=== PATIENT | female | born 2000 | race Caucasian/White ===

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

== ENCOUNTER 2019-01-25 23:26 | Outpatient (CLI) | payer OTHER | END 2019-01-25 23:27 | disposition EMS.NT | LOC: EMS 23:26 | PROVIDERS: ATTEND Surgery | DX: R42 Dizziness and giddiness (principal); R11.0 Nausea ==

== ENCOUNTER 2019-01-29 18:05 | Emergency (ER) | payer OTHER ==
[2019-01-29 18:11] VITALS: BP 121/65
--- NOTE | 2019-01-29 18:16 | ED Physician Documentation ---
History of Present Illness - Stated complaint Stated Complaint: RT FOOT PX - Chief complaint Chief Complaint: Ext Problem - History obtained from History obtained from: Patient - History of Present Illness Timing: Prior to arrival - Additonal information Additional information: Patient is a previously healthy 18-year-old female presenting with right foot pain along the arch after her male electrical maintenance worker was massaging the foot and supposedly felt a pop and movement. Patient reports she is able to bear weight but with pain. Patient reports that she has fracture of the foot before and never received surgical correction as she was instructed to. No hardware in place. Patient denies other strength, range of motion, sensation changes. No overlying skin changes. No other injuries. No improving or worsening factors noted. Review of Systems Skin: denies: Abrasion (s), Laceration (s) Musculoskeletal: reports: Extremity pain. 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 : None HEENT: None Psych: Depression, Anxiety, Panic attacks, ADD/ADHD Musculoskeletal: Fibromyalgia, Chronic back pain Derm: None - Past Surgical History Past Surgical History: No - Present Medications Home Medications: Ambulatory Orders Medication Instructions Recorded Confirmed Albuterol 2.5 mg INH Q4H PRN 05/01/18 12/22/18 SUMAtriptan [Imitrex] 25 mg PO BID PRN 05/01/18 12/22/18 Baclofen 20 mg ORAL DAILY PRN 11/19/18 12/22/18 Sertraline HCl 200 mg ORAL DAILY 11/19/18 12/22/18 busPIRone [Buspar] 15 mg ORAL DAILY 11/19/18 12/22/18 Ondansetron Odt [Zofran] 4 mg TL Q6H PRN #10 tablet 12/22/18 - Allergies Allergies/Adverse Reactions: Allergies Allergy/AdvReac Type Severity Reaction Status Date / Time Penicillins Allergy Hives Verified 11/19/18 18:57 - Social History Does the pt smoke?: No Smoking Status: Never smoker Does the pt drink ETOH?: No Does the pt have substance abuse?: No - POLST Patient has POLST: No PD ED PE NORMAL - Vitals Vital signs reviewed: Yes - General General: Alert and oriented X 3, No acute distress, Well developed/nourished, Other (Sitting in chair with foot propped up on crutch) - HEENT HEENT: Atraumatic, Moist mucous membranes - Cardiac Cardiac: Strong equal pulses - Respiratory Respiratory: No respiratory distress - Derm Derm: Normal color, Warm and dry, No rash - Extremities Extremities: No deformity, No tenderness to palpate, No edema, No calf tenderness / cord - Neuro Neuro: Alert and oriented X 3, No motor deficit, No sensory deficit - Psych Psych: Normal mood, Normal affect Results - Vitals Vitals: Vital Signs - 24 hr 01/29/19 18:09 Temperature 36.8 C Heart Rate 87 Respiratory 16 Rate Blood Pressure 121/65 O2 Saturation 100 Oxygen O2 Source Room air PD MEDICAL DECISION MAKING - ED course Complexity details: reviewed results, re-evaluated patient, considered differential, d/w patient, d/w family ED course: Patient presenting with right foot pain after massage. Have extremely low suspicion for dislocation, fracture, or other bony abnormality, but patient preferring x-ray at this time. X-ray obtained which not been evidence of acute abnormality. Additionally, do not find concern for infection, gout, DVT, or other abnormality, particularly given traumatic nature and benign exam. Although patient is safe to discharge home and recommended supportive cares, return precautions, and appropriate follow-up. Patient voiced understanding and is comfortable with discharge plan. Departure - Departure Disposition: 01 Home, Self Care Clinical Impression: Pain in extremity Qualifiers: Extremity pain location: lower extremity Laterality: right Qualified Code(s): M79.604 - Pain in right leg Condition: Good Instructions: ED Muscle Aching Follow-Up: Paulo Gaffney ARNP [Primary Care Provider] - Within 3 Days Comments: Recommend supportive care such as ice for swelling, elevation, ibuprofen/Tylenol as needed. Please follow-up with primary care physician in next 2 to 3 days and return to ED sooner if experience worsening symptoms or have other concerns.
--- NOTE | 2019-01-29 19:31 | XRAY Report ---
Reason: felt a pop during foot massage, pain with weight b Procedure Date: 01/29/2019 Accession Number: [id number] / [id number] Procedure: XR - Foot 3 View RT CPT Code: FULL RESULT: EXAM: RIGHT FOOT RADIOGRAPHY. EXAM DATE: 01/29/2019 07:07 PM. CLINICAL HISTORY: [place] a pop during foot massage, pain with weight bearing. COMPARISON: FOOT 3 VIEW RT 01/26/2018 8:27 PM. TECHNIQUE: 3 views. FINDINGS: Bones: Stable congenital large os naviculare, with partial fusion. Trabecular and cortical patterns are intact. Joints: Normal. No subluxations. Soft Tissues: Normal. No soft tissue swelling. IMPRESSION: No acute bony abnormality. RADIA
== END 2019-01-29 19:45 | disposition home or self-care (01) ==
LOC: ED 18:05
DX: M79.671 Pain in right foot (principal)
CPT/HCPCS: 99282; 99283

== ENCOUNTER 2019-03-02 20:45 | Emergency (ER) | payer OTHER ==
[2019-03-02 21:07] LABS: BILIRUBIN,URINE NEGATIVE (NEGATIVE); GLUCOSE, URINE (UA) NEGATIVE (NEGATIVE); KETONES,URINE (UA) NEGATIVE (NEGATIVE); LEUKOCYTE ESTERASE, URINE NEGATIVE (NEGATIVE); NITRITE,URINE NEGATIVE (NEGATIVE); OCCULT BLOOD,URINE NEGATIVE (NEGATIVE); PH,URINE 5.5 PH (5.0-7.5); PROTEIN,URINE NEGATIVE (NEGATIVE); UROBILINOGEN,URINE 0.2 (NORMAL) E.U./dL (NORMAL)
[2019-03-02 21:09] LABS: CLARITY,URINE CLEAR (CLEAR); HCG UR QUAL POSITIVE
--- NOTE | 2019-03-02 21:34 | ED Physician Documentation ---
PD HPI ABD PAIN - Stated complaint Stated Complaint: ABD CRAMPING/7 WKS - Chief complaint Chief Complaint: Abd Pain - History obtained from History obtained from: Patient - History of Present Illness Timing - onset: Other (19-year-old G1. She says she is at 7 weeks gestation but review of the dates with LMP of January 21 suggest that she is closer to 5 weeks and 5 days. 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 HEENT: None Psych: Depression, Anxiety, Panic attacks, ADD/ADHD Musculoskeletal: Fibromyalgia, Chronic back pain Derm: None - Past Surgical History Past Surgical History: No - Present Medications Home Medications: Ambulatory Orders Medication Instructions Recorded Confirmed Albuterol 2.5 mg INH Q4H PRN 05/01/18 12/22/18 SUMAtriptan [Imitrex] 25 mg PO BID PRN 05/01/18 12/22/18 Baclofen 20 mg ORAL DAILY PRN 11/19/18 12/22/18 Sertraline HCl 200 mg ORAL DAILY 11/19/18 12/22/18 busPIRone [Buspar] 15 mg ORAL DAILY 11/19/18 12/22/18 Ondansetron Odt [Zofran] 4 mg TL Q6H PRN #10 tablet 12/22/18 - Allergies Allergies/Adverse Reactions: Allergies Allergy/AdvReac Type Severity Reaction Status Date / Time Penicillins Allergy Hives Verified 11/19/18 18:57 - Social History Does the pt smoke?: No Smoking Status: Never smoker Does the pt drink ETOH?: No Does the pt have substance abuse?: No - Immunizations Immunizations are current?: Yes - POLST Patient has POLST: No PD ED PE NORMAL - Vitals Vital signs reviewed: Yes - General General: Alert and oriented X 3, No acute distress - Abdomen Abdomen: Soft, Non tender - Female Female : Other (Bedside ultrasound demonstrates what appears to be a gestational sac, it appears to early for transabdominal approach with bedside ultrasound to give me any definition of heart rate etc.) - Derm Derm: Normal color, Warm and dry - Neuro Neuro: Alert and oriented X 3, Normal speech Results - Vitals Vitals: Vital Signs - 24 hr 03/02/19 03/02/19 03/02/19 20:49 20:52 22:59 Temperature 36.5 C 36.5 C 37.1 C Heart Rate 98 98 92 Respiratory 14 14 16 Rate Blood Pressure 124/68 124/68 106/67 O2 Saturation 98 98 99 Oxygen O2 Source Room air - Labs Labs: Laboratory Tests 03/02/19 03/02/19 03/02/19 21:00 21:00 21:34 HCG, Quant Urine Color YELLOW Urine Clarity CLEAR Urine pH 5.5 Ur Specific [place] 1.020 1.020 Urine Protein NEGATIVE Urine Glucose (UA) NEGATIVE Urine Ketones NEGATIVE Urine Occult Blood NEGATIVE Urine Nitrite NEGATIVE Urine Bilirubin NEGATIVE Urine Urobilinogen 0.2 (NORMAL) Ur Leukocyte Esterase NEGATIVE Ur Microscopic Review NOT INDICATED Urine Culture Comments NOT INDICATED Urine HCG, Qual POSITIVE Blood Type O POSITIVE 03/02/19 21:34 HCG, Quant 72220.00 Urine Color Urine Clarity Urine pH Ur Specific [place] Urine Protein Urine Glucose (UA) Urine Ketones Urine Occult Blood Urine Nitrite Urine Bilirubin Urine Urobilinogen Ur Leukocyte Esterase Ur Microscopic Review Urine Culture Comments Urine HCG, Qual Blood Type - Rads (name of study) OB sono Radiology: EMP read contemporaneously (Yolk sac consistent with dates, no clear heart tone or pole) PD MEDICAL DECISION MAKING - ED course ED course: 19-year-old woman presents with symptoms concerning for threatened . No heart tones on ultrasound, watchful waiting and repeat ultrasound was advised given the early nature of the . There is no evidence of ectopic . Departure - Departure Disposition: 01 Home, Self Care Clinical Impression: Threatened Condition: Good Record reviewed to determine appropriate education?: Yes Instructions: ED Miscarriage Poss Comments: Your blood type is O+, therefore you do not need any RhoGam shots. Your quantitative hCG today was 32460, your ultrasound showed an intrauterine gestational sac, but no clear heartbeat. Hopefully this is likely due to the early nature of your . [place], recommend potentially repeat ultrasound in 1 week to assess the viability of the . Return if worse.
[2019-03-02 23:00] VITALS: BP 106/67
--- NOTE | 2019-03-02 23:16 | Ultrasound Report ---
Reason: cramping, VB 5w5d Procedure Date: 03/02/2019 Accession Number: [id number] / [id number] Procedure: US - OB First Trimester CPT Code: FULL RESULT: EXAM: FIRST TRIMESTER OBSTETRIC ULTRASOUND (Less than 11 weeks) EXAM DATE: 03/02/2019 10:21 PM. CLINICAL HISTORY: Cramping. Vaginal bleeding. LMP: 01/21/2019. COMPARISONS: None. TECHNIQUE: Transabdominal and transvaginal ultrasound examination with static image documentation. CLINICAL DATES: EGA 5 weeks 5 days with CARLOS ENRIQUE 10/28/2019 based on LMP. ASSESSMENT: Gestational Sac: Single intrauterine. Mean gestational sac diameter: 13 mm = 6 weeks 1 day. Embryo: None visualized. Cardiac activity: None visualized. Yolk sac: 4 mm. Amniotic fluid: Not accurately assessed at this gestational age. Early placenta: Not visible at this gestational age. Other: Small perigestational fluid collection noted 1.4 x 0.8 cm. MATERNAL STRUCTURES: Uterus: Anteverted. Unremarkable. Cervix: Closed. Right Ovary/Adnexa: The ovary measures 3.5 x 2.9 x 1.8 cm, volume 9.3 cc. Unremarkable. Left Ovary/Adnexa: The ovary measures 2.9 x 2.1 x 2.9 cm, volume 9.5 cc. Unremarkable. Free Fluid: None. Other: None. IMPRESSION: 1. Single intrauterine at EGA 6 weeks 1 day based on mean sac diameter, which is concordant with clinical dates. 2. Yolk sac identified, but nofetal pole or heartbeat. RADIA
== END 2019-03-02 23:22 | disposition home or self-care (01) ==
LOC: ED 20:45
DX: O20.0 Threatened abortion (principal); Z3A.01 Less than 8 weeks gestation of pregnancy
CPT/HCPCS: 36415; 76801; 76817; 81001; 81003; 81025; 84702; 86900; 86901; 87086; 99282; 99284

== ENCOUNTER 2019-03-04 15:33 | Outpatient (CLI) | payer OTHER | END 2019-03-04 15:34 | disposition EMS.NT | LOC: EMS 15:33 | PROVIDERS: ATTEND Surgery | DX: O99.89 Other specified diseases and conditions complicating pregnancy, childbirth and the puerperium (principal); R10.9 Unspecified abdominal pain ==

== ENCOUNTER 2019-03-04 16:06 | Emergency (ER) | payer OTHER ==
[2019-03-04] MEDS ORDERED: ONDANSETRON 4 MG/2 ML VIAL IVP STA (16:14)
[2019-03-04] MEDS ORDERED: MORPHINE 2 MG/ML CARPUJECT IVP STA ×2 (16:14→16:43)
--- NOTE | 2019-03-04 16:18 | ED Physician Documentation ---
PD HPI MALE - Stated complaint Stated Complaint: PAINFUL CRAMPS - Chief complaint Chief Complaint: Abd Pain - History obtained from History obtained from: Patient (This is a G1 who by dates would be just over 6 weeks now. I saw her 2 days ago for cramping. She had ultrasound showing a yolk sac but no clear IUP or pole. Conservative care and watchful waiting was advised. Her blood type is O+. Cramping became much worse today and on the left side.) Review of Systems Ten Systems: 10 systems reviewed and negative Constitutional: denies: Fever, Chills GI: reports: Abdominal Pain, Nausea. 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 HEENT: None Psych: Depression, Anxiety, Panic attacks, ADD/ADHD Musculoskeletal: Fibromyalgia, Chronic back pain Derm: None - Past Surgical History Past Surgical History: No - Present Medications Home Medications: Ambulatory Orders Medication Instructions Recorded Confirmed Albuterol 2.5 mg INH Q4H PRN 05/01/18 12/22/18 SUMAtriptan [Imitrex] 25 mg PO BID PRN 05/01/18 12/22/18 Baclofen 20 mg ORAL DAILY PRN 11/19/18 12/22/18 Sertraline HCl 200 mg ORAL DAILY 11/19/18 12/22/18 busPIRone [Buspar] 15 mg ORAL DAILY 11/19/18 12/22/18 Ondansetron Odt [Zofran] 4 mg TL Q6H PRN #10 tablet 12/22/18 Hydrocodone/Acetaminophen 1 - 2 each PO Q6H PRN #14 tablet 03/04/19 [Hydrocodon-Acetaminophen 5-325] - Allergies Allergies/Adverse Reactions: Allergies Allergy/AdvReac Type Severity Reaction Status Date / Time Penicillins Allergy Hives Verified 11/19/18 18:57 - Social History Does the pt smoke?: No Smoking Status: Never smoker Does the pt drink ETOH?: No Does the pt have substance abuse?: No - Family History Family history: reports: Non contributory - Immunizations Immunizations are current?: Yes - POLST Patient has POLST: No PD ED PE NORMAL - Vitals Vital signs reviewed: Yes - General General: Alert and oriented X 3, Other (She is crying and appears uncomfortable) - HEENT HEENT: PERRL, EOMI - Neck Neck: Supple, no meningeal sign, No bony TTP - Cardiac Cardiac: RRR, No murmur - Respiratory Respiratory: No respiratory distress, Clear bilaterally - Abdomen Abdomen: Soft, Non tender - Derm Derm: Normal color, Warm and dry - Extremities Extremities: No edema, No calf tenderness / cord - Neuro Neuro: Alert and oriented X 3, Normal speech - Psych Psych: Normal mood, Normal affect Results - Vitals Vitals: Vital Signs - 24 hr 03/04/19 16:09 Temperature 36.5 C Heart Rate 85 Respiratory 14 Rate Blood Pressure 125/63 O2 Saturation 100 Oxygen O2 Source Room air - Labs Labs: Laboratory Tests 03/04/19 03/04/19 03/04/19 16:20 16:20 16:20 WBC 13.8 H RBC 4.46 Hgb 13.9 Hct 42.2 MCV 94.6 MCH 31.2 H MCHC 32.9 RDW 12.2 Plt Count 296 MPV 10.1 Neut # (Auto) 8.7 H Lymph # (Auto) 3.8 H [place] # (Auto) 1.0 Eos # (Auto) 0.1 Baso # (Auto) 0.0 Absolute Nucleated RBC 0.00 Nucleated RBC % 0.0 Sodium 137 Potassium 3.7 Chloride 106 Carbon Dioxide 21 Anion Gap 10.0 BUN 9 Creatinine 0.7 Estimated GFR (MDRD) 107 Glucose 92 Calcium 9.7 HCG, Quant 41209.00 - Rads (name of study) OB sono Radiology: EMP read contemporaneously (Single viable intrauterine , 6 weeks and 0 days based on CRL concordant with clinical dates and a 1.1 x 0.3 x 0.4. Gestational implant hemorrhage.) PD MEDICAL DECISION MAKING - ED course ED course: 19-year-old woman who presents with severe cramping in . Had ultrasound 2 days ago showing yolk sac in uterus. The cramping did start after sex, and that was true for the prior visit as well and pelvic rest was advised for the next week. Her ultrasound does show progression of the but they sammy-gestational hemorrhage may be contributing to her pain. Her pain was controlled with 2 doses of morphine here which caused some reactive nausea which was treated as well. Departure - Departure Disposition: 01 Home, Self Care Clinical Impression: Threatened Condition: Good Record reviewed to determine appropriate education?: Yes Instructions: ED Miscarriage Poss Prescriptions: Hydrocodone/Acetaminophen [Hydrocodon-Acetaminophen 5-325] 1 - 2 each PO Q6H PRN #14 tablet PRN Reason: pain Comments: No sexual activity for a week. Follow-up with your OB this coming week. Return if worse.
[2019-03-04 16:28] LABS: BASOPHILS % (AUTO) 0.3 %; EOSINOPHILS # (AUTO) 0.1 10^3/uL (0.0-0.7); EOSINOPHILS % (AUTO) 0.8 %; HGB - HEMOGLOBIN 13.9 g/dL (12.0-16.0); LYMPHOCYTES # (AUTO) 3.8 10^3/uL (1.5-3.5); LYMPHOCYTES % (AUTO) 27.7 %; MEAN CORPUSCULAR HEMOGLOBIN 31.2 pg (27.0-31.0); MEAN CORPUSCULAR HGB CONC 32.9 g/dL (32.0-36.0); MEAN CORPUSCULAR VOLUME 94.6 fL (81.0-99.0); MEAN PLATELET VOLUME 10.1 fL (7.9-10.8); MONOCYTES % (AUTO) 7.3 %; NEUTROPHILS # (AUTO) 8.7 10^3/uL (1.5-6.6); NEUTROPHILS % (AUTO) 63.4 %; PLT - PLATELET COUNT 296 10^3/uL (130-450); RED BLOOD COUNT 4.46 10^6/uL (4.20-5.40); RED CELL DISTRIBUTION WIDTH 12.2 % (12.0-15.0); WHITE BLOOD COUNT 13.8 x10^3/uL (4.8-10.8)
[2019-03-04 16:36] LABS: CALCIUM 9.7 mg/dL (8.5-10.3); CREATININE 0.7 mg/dL (0.4-1.0)
--- NOTE | 2019-03-04 18:04 | Ultrasound Report ---
Reason: Pelvic pain/cramping Procedure Date: 03/04/2019 Accession Number: [id number] / [id number] Procedure: US - OB First Trimester CPT Code: FULL RESULT: EXAM: FIRST TRIMESTER OBSTETRIC ULTRASOUND (Less than 11 weeks) EXAM DATE: 03/04/2019 05:43 PM. CLINICAL HISTORY: Pelvic pain/cramping. LMP: 01/21/2019. COMPARISONS: OB FIRST TRIMESTER 03/02/2019 10:20 PM. TECHNIQUE: Transabdominal and transvaginal ultrasound examination with static image documentation. CLINICAL DATES: EGA 6 weeks 0 days with CARLOS ENRIQUE 10/28/2019 based on LMP. ASSESSMENT: Gestational Sac: Single intrauterine. Mean gestational sac diameter: 16.2 mm = 6 weeks 3 days. Embryo: CRL (crown-rump length) 3.9 mm = 6 weeks 0 days. Cardiac activity: 92 beats per minute. Yolk sac: 3.7 mm. Amniotic fluid: Not accurately assessed at this gestational age. Early placenta: Not visible at this gestational age. Other: There is a 1.1 x 0.3 x 0.4 cm heterogeneous perigestational fluid collection.. MATERNAL STRUCTURES: Uterus: Anteverted. Unremarkable. Cervix: Closed. Right Ovary/Adnexa: The ovary measures 3.3 x 2.4 x 2.1 cm, volume 8.7 cc. Unremarkable. Left Ovary/Adnexa: The ovary measures 3.3 x 2.0 x 2.8 cm, volume 10.0 cc. There is a 1.1 cm left ovarian corpus luteum cyst. Free Fluid: None. Other: None. IMPRESSION: 1. Single viable intrauterine at EGA 6 weeks 0 days with CARLOS ENRIQUE 10/28/2019 based on crown-rump length, which is concordant with clinical dates. 2. There is a 1.1 x 0.3 x 0.4 cm perigestational implant hemorrhage. RADIA
[2019-03-04] MEDS ORDERED: METOCLOPRAMIDE 10 MG/2 ML VIAL IVP STA (18:17)
[2019-03-04] MEDS ORDERED: ONDANSETRON ODT 4 MG Prepack 2 TL STA (18:19)
[2019-03-04] MEDS ORDERED: HYDROcod/ACET 5/325 Prepack 4 PO STA (18:19)
[2019-03-04 18:34] VITALS: BP 126/77
== END 2019-03-04 18:32 | disposition home or self-care (01) ==
LOC: ED 16:06
DX: O20.0 Threatened abortion (principal); O34.81 Maternal care for other abnormalities of pelvic organs, first trimester; N83.12 Corpus luteum cyst of left ovary; Z3A.01 Less than 8 weeks gestation of pregnancy; R11.0 Nausea; T40.2X5A Adverse effect of other opioids, initial encounter; Y92.538 Other ambulatory health services establishments as the place of occurrence of the external cause
CPT/HCPCS: 36415; 76801; 76817; 80048; 84702; 85025; 96374; 96375; 99283; 99284; J2765

== ENCOUNTER 2019-03-07 19:33 | Outpatient (CLI) | payer OTHER | END 2019-03-07 19:34 | disposition EMS.NT | LOC: EMS 19:33 | PROVIDERS: ATTEND Surgery | DX: O99.89 Other specified diseases and conditions complicating pregnancy, childbirth and the puerperium (principal); R11.0 Nausea; R10.9 Unspecified abdominal pain ==

== ENCOUNTER 2019-03-07 20:25 | Emergency (ER) | payer OTHER ==
[2019-03-07] MEDS ORDERED: SODIUM CHLORIDE 0.9% 1,000 ML IV ONE (21:00)
[2019-03-07] MEDS ORDERED: METOCLOPRAMIDE 10 MG/2 ML VIAL IVP STA (21:00)
--- NOTE | 2019-03-07 21:01 | ED Physician Documentation ---
PD HPI ABD PAIN - Stated complaint Stated Complaint: N/V/ABD PX - Chief complaint Chief Complaint: Abd Pain - History obtained from History obtained from: Patient - History of Present Illness Timing - onset: Other (19-year-old G1 presents with nausea and vomiting for the last few days. She been seen a couple of times for pelvic pain, that is mostly resolved but still very mild. No bleeding. 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 HEENT: None Psych: Depression, Anxiety, Panic attacks, ADD/ADHD Musculoskeletal: Fibromyalgia, Chronic back pain Derm: None - Past Surgical History Past Surgical History: No - Present Medications Home Medications: Ambulatory Orders Medication Instructions Recorded Confirmed Albuterol 2.5 mg INH Q4H PRN 05/01/18 12/22/18 SUMAtriptan [Imitrex] 25 mg PO BID PRN 05/01/18 12/22/18 Baclofen 20 mg ORAL DAILY PRN 11/19/18 12/22/18 Sertraline HCl 200 mg ORAL DAILY 11/19/18 12/22/18 busPIRone [Buspar] 15 mg ORAL DAILY 11/19/18 12/22/18 Ondansetron Odt [Zofran] 4 mg TL Q6H PRN #10 tablet 12/22/18 Hydrocodone/Acetaminophen 1 - 2 each PO Q6H PRN #14 tablet 03/04/19 [Hydrocodon-Acetaminophen 5-325] Metoclopramide [Reglan] 10 mg PO Q6H PRN #20 tablet 03/07/19 Ondansetron Odt [Zofran] 4 mg TL Q6H PRN #14 tablet 03/07/19 - Allergies Allergies/Adverse Reactions: Allergies Allergy/AdvReac Type Severity Reaction Status Date / Time Penicillins Allergy Hives Verified 03/07/19 20:33 - Social History Does the pt smoke?: No Smoking Status: Never smoker Does the pt drink ETOH?: No Does the pt have substance abuse?: No - Immunizations Immunizations are current?: Yes - POLST Patient has POLST: No PD ED PE NORMAL - Vitals Vital signs reviewed: Yes - General General: Alert and oriented X 3, No acute distress - HEENT HEENT: PERRL, EOMI - Neck Neck: Supple, no meningeal sign, No bony TTP - Abdomen Abdomen: Normal bowel sounds, Soft, Non tender - Neuro Neuro: Alert and oriented X 3, Normal speech Results - Vitals Vitals: Vital Signs - 24 hr 03/07/19 03/07/19 20:28 21:32 Temperature 36.6 C Heart Rate 106 H 95 Respiratory 18 16 Rate Blood Pressure 128/73 126/72 O2 Saturation 97 100 Oxygen O2 Source Room air - Labs Labs: Laboratory Tests 03/07/19 03/07/19 21:00 21:55 Sodium 137 Potassium 3.4 L Chloride 103 Carbon Dioxide 19 L Anion Gap 15.0 H BUN 11 Creatinine 0.7 Estimated GFR (MDRD) 107 Glucose 100 Calcium 10.0 Urine Color DARK YELLOW Urine Clarity CLEAR Urine pH 6.0 Ur Specific [place] >=1.030 H Urine Protein 30 H Urine Glucose (UA) NEGATIVE Urine Ketones >=80 H Urine Occult Blood TRACE-LYSE Urine Nitrite NEGATIVE Urine Bilirubin NEGATIVE Urine Urobilinogen 1 (NORMAL) Ur Leukocyte Esterase NEGATIVE Urine RBC 0-5 Urine WBC 0-3 Ur Squamous Epith Cells MOD Squamous H Urine Bacteria Few Urine Mucus Marked Strands Ur Microscopic Review INDICATED Urine Culture Comments NOT INDICATED PD MEDICAL DECISION MAKING - ED course ED course: 19-year-old G1 presents with vomiting. Previously seen cramps seem to be mostly better. She did not have much relief with Reglan but had better relief with Zofran here. She preferred the Zofran. We discussed the potential tiny risk based on her recent literature, and we will give her prescriptions for both but she understands that Reglan may be safer. 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 Return for new worsening symptoms.
[2019-03-07 21:26] LABS: CREATININE 0.7 mg/dL (0.4-1.0)
[2019-03-07] MEDS ORDERED: ONDANSETRON 4 MG/2 ML VIAL IVP STA (21:54)
[2019-03-07 22:04] LABS: GLUCOSE, URINE (UA) NEGATIVE (NEGATIVE); KETONES,URINE (UA) >=80 mg/dL (NEGATIVE); LEUKOCYTE ESTERASE, URINE NEGATIVE (NEGATIVE); NITRITE,URINE NEGATIVE (NEGATIVE); OCCULT BLOOD,URINE TRACE-LYSE (NEGATIVE); PROTEIN,URINE 30 mg/dL (NEGATIVE); UROBILINOGEN,URINE 1 (NORMAL) E.U./dL (NORMAL)
[2019-03-07 22:09] LABS: BILIRUBIN,URINE NEGATIVE (NEGATIVE); CLARITY,URINE CLEAR (CLEAR); ICTOTEST,URINE NEGATIVE
[2019-03-07 22:12] LABS: BACTERIA,URINE Few /HPF (None Seen); MUCUS,URINE Marked Strands; RBC,URINE 0-5 /HPF (0-5); SQUAMOUS EPITHELIAL CELL,UR MOD Squamous (<= Few)
[2019-03-07] MEDS ORDERED: ONDANSETRON ODT 4 MG Prepack 2 TL STA (22:53)
[2019-03-07 22:54] VITALS: BP 108/51
== END 2019-03-07 23:01 | disposition home or self-care (01) ==
LOC: ED 20:25
DX: O21.0 Mild hyperemesis gravidarum (principal); Z3A.00 Weeks of gestation of pregnancy not specified
CPT/HCPCS: 36415; 80048; 81001; 96361; 96374; 96375; 99283; 99284; J2765; 81003; 87086

== ENCOUNTER 2019-03-09 16:24 | Outpatient (CLI) | payer OTHER | END 2019-03-09 16:25 | disposition critical access hospital (66) | LOC: EMS 16:24 | PROVIDERS: ATTEND Surgery | DX: O99.89 Other specified diseases and conditions complicating pregnancy, childbirth and the puerperium (principal); R10.30 Lower abdominal pain, unspecified | CPT/HCPCS: A0425; A0429 ==

== ENCOUNTER 2019-03-09 16:39 | Emergency (ER) | payer OTHER ==
[2019-03-09] MEDS ORDERED: MORPHINE 2 MG/ML CARPUJECT IVP STA (16:43)
--- NOTE | 2019-03-09 16:44 | ED Physician Documentation ---
PD HPI FEMALE - Stated complaint Stated Complaint: ABD PAIN - History obtained from History obtained from: Patient - History of Present Illness Timing - onset: Today (19-year-old G1 whose been having a tough time with this so far. I saw her recently for abdominal cramping. Intrauterine with a small based perigestational hemorrhage have been confirmed. 2 nights ago I saw her for hyperemesis, that is controlled with the medications. The previous episodes of cramping were temporally related to sexual activity and she had sex this morning, couple hours later developed pelvic and lower abdominal cramping radiating to the left with fullness of the left kidney she thinks.) Review of Systems Constitutional: denies: Fever, Chills GI: reports: Abdominal Pain, Nausea, Vomiting. 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 : None HEENT: None Psych: Depression, Anxiety, Panic attacks, ADD/ADHD Musculoskeletal: Fibromyalgia, Chronic back pain Derm: None - Past Surgical History Past Surgical History: No - Present Medications Home Medications: Ambulatory Orders Medication Instructions Recorded Confirmed Albuterol 2.5 mg INH Q4H PRN 05/01/18 12/22/18 SUMAtriptan [Imitrex] 25 mg PO BID PRN 05/01/18 12/22/18 Baclofen 20 mg ORAL DAILY PRN 11/19/18 12/22/18 Sertraline HCl 200 mg ORAL DAILY 11/19/18 12/22/18 busPIRone [Buspar] 15 mg ORAL DAILY 11/19/18 12/22/18 Ondansetron Odt [Zofran] 4 mg TL Q6H PRN #10 tablet 12/22/18 Hydrocodone/Acetaminophen 1 - 2 each PO Q6H PRN #14 tablet 03/04/19 [Hydrocodon-Acetaminophen 5-325] Metoclopramide [Reglan] 10 mg PO Q6H PRN #20 tablet 03/07/19 Ondansetron Odt [Zofran] 4 mg TL Q6H PRN #14 tablet 03/07/19 - Allergies Allergies/Adverse Reactions: Allergies Allergy/AdvReac Type Severity Reaction Status Date / Time Penicillins Allergy Hives Verified 03/07/19 20:33 - Social History Does the pt smoke?: No Smoking Status: Never smoker Does the pt drink ETOH?: No Does the pt have substance abuse?: No - Immunizations Immunizations are current?: Yes - POLST Patient has POLST: No PD ED PE NORMAL - Vitals Vital signs reviewed: Yes - General General: Alert and oriented X 3, No acute distress - Abdomen Abdomen: Normal bowel sounds, Soft, Non tender - Female Female : Other (Bedside ultrasound shows single live intrauterine with a heart rate of 122) - Derm Derm: No rash - Neuro Neuro: Alert and oriented X 3, Normal speech Results - Vitals Vitals: Vital Signs - 24 hr 03/09/19 16:41 Temperature 36.6 C Heart Rate 82 Respiratory 16 Rate Blood Pressure 101/76 O2 Saturation 99 Oxygen O2 Source Room air - Labs Labs: Laboratory Tests 03/09/19 18:15 Urine Color YELLOW Urine Clarity CLEAR Urine pH 7.0 Ur Specific [place] 1.010 Urine Protein NEGATIVE Urine Glucose (UA) NEGATIVE Urine Ketones >=80 H Urine Occult Blood NEGATIVE Urine Nitrite NEGATIVE Urine Bilirubin NEGATIVE Urine Urobilinogen 1 (NORMAL) Ur Leukocyte Esterase NEGATIVE Ur Microscopic Review NOT INDICATED Urine Culture Comments NOT INDICATED PD MEDICAL DECISION MAKING - ED course ED course: 19-year-old here for the fourth time in a week with related issues. The bedside ultrasound is reassuring. Previous episodes of pelvic cramps were related temporally to sexual activity as is this 1. Again they were advised not to have sex for a little bit. Departure - Departure Disposition: 01 Home, Self Care Clinical Impression: Abdominal pain Qualifiers: Abdominal location: lower abdomen, unspecified Qualified Code(s): R10.30 - Lower abdominal pain, unspecified Condition: Good Record reviewed to determine appropriate education?: Yes Instructions: ED Pelvic Pain [facility] Comments: No sex for 1 week. Follow-up with your [employer]rix architect next week as scheduled. Return if worse.
[2019-03-09] MEDS ORDERED: ONDANSETRON 4 MG/2 ML VIAL IVP STA (17:29)
[2019-03-09] MEDS ORDERED: ONDANSETRON 4 MG/2 ML VIAL ONE (17:39)
[2019-03-09 18:23] LABS: BILIRUBIN,URINE NEGATIVE (NEGATIVE); GLUCOSE, URINE (UA) NEGATIVE (NEGATIVE); KETONES,URINE (UA) >=80 mg/dL (NEGATIVE); LEUKOCYTE ESTERASE, URINE NEGATIVE (NEGATIVE); NITRITE,URINE NEGATIVE (NEGATIVE); OCCULT BLOOD,URINE NEGATIVE (NEGATIVE); PROTEIN,URINE NEGATIVE (NEGATIVE); UROBILINOGEN,URINE 1 (NORMAL) E.U./dL (NORMAL)
[2019-03-09 18:36] LABS: CLARITY,URINE CLEAR (CLEAR)
[2019-03-09 19:11] VITALS: BP 105/78
== END 2019-03-09 19:13 | disposition home or self-care (01) ==
LOC: EDUNIT# → ED 16:39
DX: O99.89 Other specified diseases and conditions complicating pregnancy, childbirth and the puerperium (principal); R10.30 Lower abdominal pain, unspecified; Z3A.00 Weeks of gestation of pregnancy not specified
CPT/HCPCS: 81001; 81003; 87086; 99282; 99283

== ENCOUNTER 2019-03-16 07:55 | Emergency (ER) | payer OTHER ==
[2019-03-16] MEDS ORDERED: SODIUM CHLORIDE 0.9% 1,000 ML IV STA (08:22)
[2019-03-16] MEDS ORDERED: METOCLOPRAMIDE 10 MG/2 ML VIAL IVP STA ×2 (08:23→12:12)
[2019-03-16] MEDS ORDERED: ONDANSETRON 4 MG/2 ML VIAL IVP STA ×2 (08:23→12:12)
--- NOTE | 2019-03-16 08:26 | ED Physician Documentation ---
History of Present Illness - Stated complaint Stated Complaint: NAUSEA/VOMITING - Chief complaint Chief Complaint: General - History obtained from History obtained from: Patient - History of Present Illness Timing: Last night Pain level max: 4 Pain level now: 4 - Additonal information Additional information: 19-year-old female presents to the emergency department stating she is approximately 7-1/2 weeks . She is had difficulties with this with nausea and vomiting. Started vomiting last night. Took Zofran this morning but is unable to keep anything down. She is followed at the [facility] for OB. Nothing makes it better. She states "everything" makes it worse. 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 : None HEENT: None Psych: Depression, Anxiety, Panic attacks, ADD/ADHD Musculoskeletal: Fibromyalgia, Chronic back pain Derm: None - Past Surgical History Past Surgical History: No - Present Medications Home Medications: Ambulatory Orders Medication Instructions Recorded Confirmed Albuterol 2.5 mg INH Q4H PRN 05/01/18 12/22/18 SUMAtriptan [Imitrex] 25 mg PO BID PRN 05/01/18 12/22/18 Baclofen 20 mg ORAL DAILY PRN 11/19/18 12/22/18 Sertraline HCl 200 mg ORAL DAILY 11/19/18 12/22/18 busPIRone [Buspar] 15 mg ORAL DAILY 11/19/18 12/22/18 Ondansetron Odt [Zofran] 4 mg TL Q6H PRN #10 tablet 12/22/18 Hydrocodone/Acetaminophen 1 - 2 each PO Q6H PRN #14 tablet 03/04/19 [Hydrocodon-Acetaminophen 5-325] Metoclopramide [Reglan] 10 mg PO Q6H PRN #20 tablet 03/07/19 Ondansetron Odt [Zofran] 4 mg TL Q6H PRN #14 tablet 03/07/19 - Allergies Allergies/Adverse Reactions: Allergies Allergy/AdvReac Type Severity Reaction Status Date / Time Penicillins Allergy Hives Verified 03/07/19 20:33 - Social History Does the pt smoke?: No Smoking Status: Never smoker Does the pt drink ETOH?: No Does the pt have substance abuse?: No - Immunizations Immunizations are current?: Yes - POLST Patient has POLST: No PD ED PE NORMAL - Vitals Vital signs reviewed: Yes - General General: Alert and oriented X 3, Well developed/nourished, Other (Dry heaving at the bedside) - HEENT HEENT: PERRL, Moist mucous membranes - Neck Neck: Supple, no meningeal sign - Cardiac Cardiac: RRR - Respiratory Respiratory: No respiratory distress, Clear bilaterally - Abdomen Abdomen: Soft, Non tender, Non distended - Derm Derm: Warm and dry, No rash - Extremities Extremities: No edema - Neuro Neuro: Alert and oriented X 3 - Psych Psych: Normal mood, Normal affect Results - Vitals Vitals: Vital Signs - 24 hr 03/16/19 03/16/19 03/16/19 08:08 11:53 12:46 Temperature 36.0 C L Heart Rate 110 H 77 88 Respiratory 22 16 18 Rate Blood Pressure 123/89 H 105/60 97/81 H O2 Saturation 100 100 99 03/16/19 13:26 Temperature Heart Rate 84 Respiratory 18 Rate Blood Pressure 106/54 L O2 Saturation 100 Oxygen O2 Source Room air - Labs Labs: Laboratory Tests 03/16/19 03/16/19 03/16/19 08:40 08:40 11:50 WBC 17.1 H RBC 4.58 Hgb 14.3 Hct 43.1 MCV 94.1 MCH 31.2 H MCHC 33.2 RDW 12.4 Plt Count 305 MPV 11.2 H Neut # (Auto) 14.7 H Lymph # (Auto) 1.8 [place] # (Auto) 0.5 Eos # (Auto) 0.0 Baso # (Auto) 0.0 Absolute Nucleated RBC 0.00 Nucleated RBC % 0.0 Sodium 140 Potassium 3.3 L Chloride 103 Carbon Dioxide 23 Anion Gap 14.0 H BUN 7 Creatinine 0.7 Estimated GFR (MDRD) 107 Glucose 117 H Calcium 10.0 Total Bilirubin 0.7 AST 25 ALT 20 Alkaline Phosphatase 49 Total Protein 8.3 H Albumin 4.7 Globulin 3.6 Albumin/Globulin Ratio 1.3 Lipase 26 Urine Color YELLOW Urine Clarity CLEAR Urine pH 7.5 Ur Specific [place] 1.020 Urine Protein 30 H Urine Glucose (UA) NEGATIVE Urine Ketones >=80 H Urine Occult Blood NEGATIVE Urine Nitrite NEGATIVE Urine Bilirubin NEGATIVE Urine Urobilinogen 1 (NORMAL) Ur Leukocyte Esterase NEGATIVE Urine RBC 0-5 Urine WBC 0-3 Ur Squamous Epith Cells FEW Squamous Urine Bacteria Rare Urine Mucus Few Strands Ur Microscopic Review INDICATED Urine Culture Comments NOT INDICATED PD MEDICAL DECISION MAKING - ED course Complexity details: reviewed old records, reviewed results, re-evaluated patient, considered differential, d/w patient ED course: FHR 162 bpm, images shown to patient for bedside US. IUP present. Patient feels better after IV fluids, Zofran and Reglan. Tolerating p.o. without difficulty. She states she would like to try going home at this time. Has Zofran and Reglan at home. We will continue these medications. We will have her follow-up with her OB for further care. She is well-appearing, nontoxic. Afebrile. Patient counseled regarding signs and symptoms for which I believe and urgent re-evaluation would be necessary. Patient with good understanding of and agreement to plan and is comfortable going home at this time This document was made in part using voice recognition software. While efforts are made to proofread this document, sound alike and grammatical errors may occur. Departure - Departure Disposition: 01 Home, Self Care Clinical Impression: Vomiting affecting Condition: Good Instructions: ED Preg Morning Sickness Follow-Up: Paulo Gaffney ARNP [Primary Care Provider] - Within 1 week Comments: Return if you worsen. Drink plenty of fluids. Rest today. Forms: Activity restrictions Discharge Date/Time: 03/16/19 13:27
[2019-03-16] MEDS ORDERED: SODIUM CHLORIDE 0.9% 1,000 ML IV ONE (09:32)
[2019-03-16 09:35] LABS: BASOPHILS % (AUTO) 0.2 %; HGB - HEMOGLOBIN 14.3 g/dL (12.0-16.0); LYMPHOCYTES # (AUTO) 1.8 10^3/uL (1.5-3.5); LYMPHOCYTES % (AUTO) 10.2 %; MEAN CORPUSCULAR HEMOGLOBIN 31.2 pg (27.0-31.0); MEAN CORPUSCULAR HGB CONC 33.2 g/dL (32.0-36.0); MEAN CORPUSCULAR VOLUME 94.1 fL (81.0-99.0); MEAN PLATELET VOLUME 11.2 fL (7.9-10.8); MONOCYTES # (AUTO) 0.5 10^3/uL (0.0-1.0); MONOCYTES % (AUTO) 2.9 %; NEUTROPHILS # (AUTO) 14.7 10^3/uL (1.5-6.6); NEUTROPHILS % (AUTO) 86.1 %; PLT - PLATELET COUNT 305 10^3/uL (130-450); RED BLOOD COUNT 4.58 10^6/uL (4.20-5.40); RED CELL DISTRIBUTION WIDTH 12.4 % (12.0-15.0); WHITE BLOOD COUNT 17.1 x10^3/uL (4.8-10.8)
[2019-03-16 09:51] LABS: ALBUMIN 4.7 g/dL (3.2-5.5); ALBUMIN/GLOBULIN RATIO 1.3 (1.0-2.2); BILIRUBIN,TOTAL 0.7 mg/dL (0.2-1.0); CREATININE 0.7 mg/dL (0.4-1.0); TOTAL PROTEIN 8.3 g/dL (6.7-8.2)
[2019-03-16 12:03] LABS: GLUCOSE, URINE (UA) NEGATIVE (NEGATIVE); KETONES,URINE (UA) >=80 mg/dL (NEGATIVE); LEUKOCYTE ESTERASE, URINE NEGATIVE (NEGATIVE); NITRITE,URINE NEGATIVE (NEGATIVE); OCCULT BLOOD,URINE NEGATIVE (NEGATIVE); PH,URINE 7.5 PH (5.0-7.5); PROTEIN,URINE 30 mg/dL (NEGATIVE); UROBILINOGEN,URINE 1 (NORMAL) E.U./dL (NORMAL)
[2019-03-16 12:08] LABS: BILIRUBIN,URINE NEGATIVE (NEGATIVE); CLARITY,URINE CLEAR (CLEAR); ICTOTEST,URINE NEGATIVE
[2019-03-16 12:28] LABS: BACTERIA,URINE Rare /HPF (None Seen); MUCUS,URINE Few Strands; RBC,URINE 0-5 /HPF (0-5); SQUAMOUS EPITHELIAL CELL,UR FEW Squamous (<= Few)
[2019-03-16] MEDS ORDERED: NITROFURANTOIN MACRO 100 MG CAPSULE PO STA (12:37)
[2019-03-16 13:27] VITALS: BP 106/54
== END 2019-03-16 13:27 | disposition home or self-care (01) ==
LOC: ED 07:55
DX: O21.9 Vomiting of pregnancy, unspecified (principal)
CPT/HCPCS: 36415; 80053; 81001; 83690; 85025; 96361; 96374; 96376; 99283; 99284; A9270; J2765; 81003; 87086

== ENCOUNTER 2019-04-23 09:41 | Emergency (ER) | payer OTHER ==
[2019-04-23] MEDS ORDERED: SODIUM CHLORIDE 0.9% 1,000 ML IV ONE (10:38)
[2019-04-23] MEDS ORDERED: METOCLOPRAMIDE 10 MG/2 ML VIAL IVP STA (10:38)
[2019-04-23 10:41] LABS: GLUCOSE, URINE (UA) NEGATIVE (NEGATIVE); KETONES,URINE (UA) >=80 mg/dL (NEGATIVE); LEUKOCYTE ESTERASE, URINE NEGATIVE (NEGATIVE); NITRITE,URINE NEGATIVE (NEGATIVE); OCCULT BLOOD,URINE SMALL (NEGATIVE); PROTEIN,URINE 30 mg/dL (NEGATIVE); UROBILINOGEN,URINE 0.2 (NORMAL) E.U./dL (NORMAL)
[2019-04-23 10:42] LABS: BASOPHILS # (AUTO) 0.1 10^3/uL (0.0-0.1); BASOPHILS % (AUTO) 0.3 %; EOSINOPHILS % (AUTO) 0.1 %; HGB - HEMOGLOBIN 15.2 g/dL (12.0-16.0); LYMPHOCYTES # (AUTO) 1.9 10^3/uL (1.5-3.5); LYMPHOCYTES % (AUTO) 10.7 %; MEAN CORPUSCULAR HEMOGLOBIN 31.9 pg (27.0-31.0); MEAN CORPUSCULAR HGB CONC 33.9 g/dL (32.0-36.0); MEAN CORPUSCULAR VOLUME 94.3 fL (81.0-99.0); MEAN PLATELET VOLUME 10.4 fL (7.9-10.8); MONOCYTES # (AUTO) 0.5 10^3/uL (0.0-1.0); MONOCYTES % (AUTO) 2.9 %; NEUTROPHILS # (AUTO) 14.8 10^3/uL (1.5-6.6); NEUTROPHILS % (AUTO) 85.1 %; PLT - PLATELET COUNT 307 10^3/uL (130-450); RED BLOOD COUNT 4.76 10^6/uL (4.20-5.40); RED CELL DISTRIBUTION WIDTH 12.6 % (12.0-15.0); WHITE BLOOD COUNT 17.3 x10^3/uL (4.8-10.8)
[2019-04-23 10:43] LABS: CLARITY,URINE HAZY (CLEAR)
[2019-04-23 10:45] LABS: BILIRUBIN,URINE NEGATIVE (NEGATIVE); ICTOTEST,URINE NEGATIVE
[2019-04-23 10:46] LABS: HCG UR QUAL POSITIVE
[2019-04-23 10:53] LABS: BACTERIA,URINE Moderate /HPF (None Seen); SQUAMOUS EPITHELIAL CELL,UR MANY Squamous (<= Few)
[2019-04-23 10:55] LABS: ALBUMIN 4.6 g/dL (3.2-5.5); ALBUMIN/GLOBULIN RATIO 1.2 (1.0-2.2); BILIRUBIN,TOTAL 0.6 mg/dL (0.2-1.0); CREATININE 0.6 mg/dL (0.4-1.0); TOTAL PROTEIN 8.3 g/dL (6.7-8.2)
[2019-04-23] MEDS ORDERED: diphenhydrAMINE INJ 50 MG/ML VIAL IVP STA (11:04)
[2019-04-23] MEDS ORDERED: DEXTROSE 5%-0.9% NACL 1,000 ML IV ONE (11:05)
--- NOTE | 2019-04-23 12:02 | ED Physician Documentation ---
PD HPI NVD - Stated complaint Stated Complaint: VOMITING - Chief complaint Chief Complaint: Abd Pain - History obtained from History obtained from: Patient - History of Present Illness Timing - onset: How many weeks ago (several weeks since becoming ) Timing - duration: Weeks Timing - details: Gradual onset Severity Comments: severe vomiting Associated symptoms: Abdominal pain, Dizzy. No: Fever, Chest pain, Hematemesis, Melena, Hematochezia, Near syncope / syncope, Loss of appetite, Weight loss, Hematuria, Vaginal bleeding Contributing factors: Other (denies marijuana use). No: Sick contact, Bad food, Travel, Recent antibiotics, Alcohol use Improved by: Other (nothing) Worsened by: Eating (or drinking) Similar symptoms before: Diagnosis (hyperemesis gravidarum) Recently seen: Clinic - Treatment prior to arrival Treatment prior to arrival: reglan, phenergan and zofran - Additonal information Additional information: Pt is 13 weeks Review of Systems Ten Systems: 10 systems reviewed and negative Constitutional: denies: Fever Cardiac: denies: Chest pain / pressure Respiratory: denies: Dyspnea GI: reports: Abdominal Pain, Nausea, Vomiting. 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 : None HEENT: None Psych: Depression, Anxiety, Panic attacks, ADD/ADHD Musculoskeletal: Fibromyalgia, Chronic back pain Derm: None - Past Surgical History Past Surgical History: No - Present Medications Home Medications: Ambulatory Orders Medication Instructions Recorded Confirmed Albuterol 2.5 mg INH Q4H PRN 05/01/18 03/30/19 Baclofen 20 mg ORAL DAILY PRN 11/19/18 03/30/19 Sertraline HCl 200 mg ORAL DAILY 11/19/18 03/30/19 Ondansetron Odt [Zofran] 4 mg TL Q6H PRN #10 tablet 12/22/18 03/30/19 Hydrocodone/Acetaminophen 1 - 2 each PO Q6H PRN #14 tablet 03/04/19 03/30/19 [Hydrocodon-Acetaminophen 5-325] Metoclopramide [Reglan] 10 mg PO Q6H PRN #20 tablet 03/07/19 03/30/19 Ondansetron Odt [Zofran] 4 mg TL Q6H PRN #14 tablet 03/07/19 03/30/19 Doxylamine/Pyridoxine HCl 1 each PO DAILY PM PRN #30 04/23/19 [Diclegis Dr 10-10 mg Tablet] tablet.dr - Allergies Allergies/Adverse Reactions: Allergies Allergy/AdvReac Type Severity Reaction Status Date / Time Penicillins Allergy Hives Verified 04/23/19 09:48 - Social History Does the pt smoke?: No Smoking Status: Never smoker Does the pt drink ETOH?: No Does the pt have substance abuse?: No Substance Use and Type: Marijuana - Immunizations Immunizations are current?: Yes - POLST Patient has POLST: No PD ED PE NORMAL - Vitals Vital signs reviewed: Yes - General General: Alert and oriented X 3, Other (uncomfortable, vomiting and retching in the ED) - HEENT HEENT: Atraumatic, Other (dry mucous membranes ) - Neck Neck: Supple, no meningeal sign - Cardiac Cardiac: RRR - Respiratory Respiratory: No respiratory distress - Abdomen Abdomen: Soft, Non distended, Other (mild diffuse lower abdominal tenderness ) - Female Female : Deferred - Rectal Rectal: Deferred - Derm Derm: Normal color, Warm and dry, No rash - Extremities Extremities: No edema - Neuro Neuro: Alert and oriented X 3 Eye Opening: Spontaneous Motor: Obeys Commands Verbal: Oriented GCS Score: 15 - Psych Psych: Normal mood, Normal affect Results - Vitals Vitals: Vital Signs - 24 hr 04/23/19 04/23/19 09:48 12:15 Temperature 36.7 C 36.6 C Heart Rate 110 H 79 Respiratory 18 15 Rate Blood Pressure 133/85 H 112/81 H O2 Saturation 100 98 Oxygen O2 Source Room air - Labs Labs: Laboratory Tests 04/23/19 04/23/19 04/23/19 10:30 10:30 10:30 WBC 17.3 H RBC 4.76 Hgb 15.2 Hct 44.9 MCV 94.3 MCH 31.9 H MCHC 33.9 RDW 12.6 Plt Count 307 MPV 10.4 Neut # (Auto) 14.8 H Lymph # (Auto) 1.9 [place] # (Auto) 0.5 Eos # (Auto) 0.0 Baso # (Auto) 0.1 Absolute Nucleated RBC 0.00 Nucleated RBC % 0.0 Sodium 139 Potassium 3.7 Chloride 102 Carbon Dioxide 22 Anion Gap 15.0 H BUN 9 Creatinine 0.6 Estimated GFR (MDRD) 127 Glucose 135 H Calcium 10.0 Total Bilirubin 0.6 AST 28 ALT 20 Alkaline Phosphatase 52 Total Protein 8.3 H Albumin 4.6 Globulin 3.7 Albumin/Globulin Ratio 1.2 Lipase 32 Urine Color DARK YELLOW Urine Clarity HAZY Urine pH 6.0 Ur Specific [place] >=1.030 H Urine Protein 30 H Urine Glucose (UA) NEGATIVE Urine Ketones >=80 H Urine Occult Blood SMALL H Urine Nitrite NEGATIVE Urine Bilirubin NEGATIVE Urine Urobilinogen 0.2 (NORMAL) Ur Leukocyte Esterase NEGATIVE Urine RBC 6-10 H Urine WBC 4-5 Ur Squamous Epith Cells MANY Squamous H Urine Bacteria Moderate H Ur Microscopic Review INDICATED Urine Culture Comments NOT INDICATED Urine HCG, Qual 04/23/19 10:30 WBC RBC Hgb Hct MCV MCH MCHC RDW Plt Count MPV Neut # (Auto) Lymph # (Auto) [place] # (Auto) Eos # (Auto) Baso # (Auto) Absolute Nucleated RBC Nucleated RBC % Sodium Potassium Chloride Carbon Dioxide Anion Gap BUN Creatinine Estimated GFR (MDRD) Glucose Calcium Total Bilirubin AST ALT Alkaline Phosphatase Total Protein Albumin Globulin Albumin/Globulin Ratio Lipase Urine Color Urine Clarity Urine pH Ur Specific [place] >=1.030 H Urine Protein Urine Glucose (UA) Urine Ketones Urine Occult Blood Urine Nitrite Urine Bilirubin Urine Urobilinogen Ur Leukocyte Esterase Urine RBC Urine WBC Ur Squamous Epith Cells Urine Bacteria Ur Microscopic Review Urine Culture Comments Urine HCG, Qual POSITIVE HCG positive dehydrated with ketonuria and leukocytosis likely due to retching and vomiting PD MEDICAL DECISION MAKING - ED course Complexity details: reviewed results, re-evaluated patient, considered differential, d/w patient ED course: ddx- hypermesis gravidarum, dehydration, cholelithiasis, uti, cholecystitis, appendicitis 19 y/o F with recurrent vomiting, retching, poor PO intake. She is 13 weeks pregnatn. Reports mild diffuse lower abdominal tenderness. Vitals stable, afebrile Labs were obtained and a urine. She was given IV fluids, NS then D5NS for ketonuria and dehydration. She was given reglan and benadryl for vomiting with marked relief. On repeat examination she is tolerating po, resting comfortable and her abdominal tenderness has resolved. I do not think she has an acute intraabdominal infection. I advised changing antiemetics from zofran and reglan to diclegis. SHe is stable for discharge with strict return precautions as documented in discharge papers. Departure - Departure Disposition: 01 Home, Self Care Clinical Impression: Hyperemesis gravidarum, Dehydration during Condition: Stable Record reviewed to determine appropriate education?: Yes Instructions: Hyperemesis Follow-Up: NANDA WADE MD [Primary Care Provider] - As Needed Prescriptions: Doxylamine/Pyridoxine HCl [Diclegis Dr 10-10 mg Tablet] 1 each PO DAILY PM PRN #30 tablet. PRN Reason: Nausea / Vomiting Comments: You were evaluated in the ED today for nausea, vomiting and abdominal pain. Your labs were normal except for ketones in your urine from dehydration and an elevated white blood cell count which often is due to vomiting but can also occur with infection. Given that you are not having a fever and your symptoms improved with fluids and nausea medicine I do not think you are having an abdominal infection but if you develop a fever or worsening pain especially in the Right lower quadrant or Right upper quadrant this could be due to your gallbladder or your appendix in which case you should return to the ED. Otherwise try taking the prescribed diclegis for nausea and vomiting in rather than the other nausea medicines as this medication is specific for hypermesis in . Discharge Date/Time: 04/23/19 12:20
[2019-04-23 12:16] VITALS: BP 112/81
== END 2019-04-23 12:20 | disposition home or self-care (01) ==
LOC: ED 09:41
DX: O21.1 Hyperemesis gravidarum with metabolic disturbance (principal); E86.0 Dehydration; Z3A.13 13 weeks gestation of pregnancy
CPT/HCPCS: 36415; 80053; 81001; 81025; 83690; 85025; 96374; 96375; 99283; 99284; J1200; J2765; 81003; 87086

== ENCOUNTER 2019-07-30 19:51 | Outpatient (CLI) | payer OTHER ==
[2019-07-30 20:34] VITALS: BP 111/61
[2019-07-30 21:26] LABS: BILIRUBIN,URINE NEGATIVE (NEGATIVE); GLUCOSE, URINE (UA) NEGATIVE (NEGATIVE); KETONES,URINE (UA) NEGATIVE (NEGATIVE); LEUKOCYTE ESTERASE, URINE NEGATIVE (NEGATIVE); NITRITE,URINE NEGATIVE (NEGATIVE); OCCULT BLOOD,URINE NEGATIVE (NEGATIVE); PH,URINE 6.5 PH (5.0-7.5); PROTEIN,URINE NEGATIVE (NEGATIVE); UROBILINOGEN,URINE 0.2 (NORMAL) E.U./dL (NORMAL)
[2019-07-30 21:31] LABS: MUDS CUTOFF CONCENTRATIONS CUTOFF CONC BELOW:
[2019-07-30 21:34] LABS: BACTERIA,URINE None Seen /HPF (None Seen); CLARITY,URINE CLEAR (CLEAR); RBC,URINE None Seen /HPF (0-5); SQUAMOUS EPITHELIAL CELL,UR MOD Squamous (<= Few)
[2019-07-30 21:43] LABS: AMPHETAMINE SCREEN,URINE NEGATIVE (NEGATIVE); BENZODIAZEPINES SCREEN, URINE NEGATIVE (NEGATIVE); COCAINE SCREEN URINE NEGATIVE (NEGATIVE); METHADONE SCREEN, URINE NEGATIVE (NEGATIVE); METHAMPHETAMINES SCREEN, URINE NEGATIVE (NEGATIVE); OPIATE SCREEN, URINE NEGATIVE (NEGATIVE); OXYCODONE SCREEN, URINE NEGATIVE (NEGATIVE); PROPOXYPHENE SCREEN, URINE NEGATIVE (NEGATIVE); TRICYCLIC ANTIDEPRESSANT,URINE NEGATIVE (NEGATIVE)
[2019-07-30 21:58] LABS: BASOPHILS % (AUTO) 0.3 %; EOSINOPHILS # (AUTO) 0.1 10^3/uL (0.0-0.7); EOSINOPHILS % (AUTO) 0.6 %; HGB - HEMOGLOBIN 12.1 g/dL (12.0-16.0); LYMPHOCYTES # (AUTO) 0.7 10^3/uL (1.5-3.5); LYMPHOCYTES % (AUTO) 6.3 %; MEAN CORPUSCULAR HEMOGLOBIN 32.2 pg (27.0-31.0); MEAN CORPUSCULAR HGB CONC 33.6 g/dL (32.0-36.0); MEAN CORPUSCULAR VOLUME 95.7 fL (81.0-99.0); MEAN PLATELET VOLUME 10.3 fL (7.9-10.8); MONOCYTES # (AUTO) 0.7 10^3/uL (0.0-1.0); MONOCYTES % (AUTO) 6.5 %; NEUTROPHILS # (AUTO) 9.1 10^3/uL (1.5-6.6); NEUTROPHILS % (AUTO) 85.5 %; PLT - PLATELET COUNT 186 10^3/uL (130-450); RED BLOOD COUNT 3.76 10^6/uL (4.20-5.40); RED CELL DISTRIBUTION WIDTH 12.5 % (12.0-15.0); WHITE BLOOD COUNT 10.7 x10^3/uL (4.8-10.8)
[2019-07-30 22:10] LABS: BILIRUBIN,TOTAL 0.5 mg/dL (0.2-1.0); CALCIUM 8.4 mg/dL (8.5-10.3); CREATININE 0.5 mg/dL (0.4-1.0); TOTAL PROTEIN 6.1 g/dL (6.7-8.2)
--- NOTE | 2019-07-31 03:01 | PROVIDER PROGRESS NOTE ---
- HPI Chief Complaint: Other (19 yo at 27 wga presents with headache, dizziness, vision change, back pain, numbness in her extremities Patient has had ongoing issues with headaches and vision changes as well as numbness in her extremities dating prior to . Rates heache 5/10 relative to worst headache. Sees sparkling lights today x2, reports seeing lights daily. Dizziness is an ongoing issue. Patient also reports nausea but has been unresponsive to multiple treatments including IV phernegan, reglan, zofran, etc. had been getting twice weekly magnesium and thiamine infusions at [facility] for these symptoms. Stopped going one week ago because she ahd blurred vision and felt weak after infusion. Her partner reports her symptoms usually improve after the infusions, which patient disputed, but they wanted their primary OB at [facility] to weigh inon side effects before continuing. She is able to tolerate po and has had 4 bottles of water since since arrival. Has had their home assessed by carrie lira for possible carbon monoxide poisoning with reassuring inspection results.) Current : Current EDU 10/29/19 Gestation 27 Weeks and 0 Days 1 Para 0 Vital Signs Temperature 98.1 F 07/30/19 20:27 Heart Rate 113 H 20 20:27 Respiratory Rate 16 20 20:27 Blood Pressure 111/61 20 20:27 O2 Saturation 96 07/30/19 20:27 Temperature 98.1 F 07/30/19 20:27 Heart Rate 113 H 20 20:27 Respiratory Rate 16 20 20:27 Blood Pressure 111/61 20 20:27 O2 Saturation 96 20 20:27 - Exam GEN: NAD CV: RRR RESP: normal effort ABD: gravid, S&NT BACK: No point tenderness NEURO: alert and oriented, normal nose to finger assessment, 5/5 strength in interosseus muscles, hand, arm, LE and foot strength bilaterally. No facial asymmetry. Olfactory and vision not tested, remainder of CN exam wnl. EXT: No LE edema EFM 140 mod ole[place]r 10x10 accels, no decels TOCO: quiet Na 133, HCT 36, Utox positive for THC Remainder of labs wnl - Procedures OB Procedure Performed: NST Diagnosis/Indication for NST: labor NST Procedure: 140 mod oleks[place]r 10 by 10 accels no decels TOCO: quiet AGA/Cat I tracing appropriate for gestational age Service Date of procedure: 07/30/19 - Plan Plan: Reviewed exam findings, particularly normal neuro exam Reviewed prior hospital records and OB records for [facility] Has referral for neurology in place Discussed with patient that her symptoms, if acute, would prompt eval for stroke including CT scan. If these are on-going and chronic symptoms, such evaluation is unnecessary. Patient and partner decline CVA assessment Has OB appt 07/31/19 with primary OB provider Will discuss magnesium infusions then Reviewed that lab work in generally wnl and does not require intervention No active N/V or acute changes indicating infection, pending labor, dis tress Recommend return to home, continue to push fluids, and get rest Warning signs reviewed DC to home
== END 2019-07-30 22:45 | disposition home or self-care (01) ==
LOC: WFO 19:51 → FBP 20:04 → WFO 22:45
PROVIDERS: ATTEND Obstetrics & Gynecology
DX: O99.89 Other specified diseases and conditions complicating pregnancy, childbirth and the puerperium (principal); R51 Headache; R42 Dizziness and giddiness; H53.9 Unspecified visual disturbance; R20.0 Anesthesia of skin; Z3A.27 27 weeks gestation of pregnancy
CPT/HCPCS: 36415; 80053; 80306; 81001; 83735; 85025; 99213

== ENCOUNTER 2019-08-27 07:00 | Outpatient (CLI) | payer OTHER ==
[2019-08-28 18:45] LABS: CANDIDA GROUP DNA NEGATIVE (NEGATIVE); CANDIDA KRUSEI DNA NEGATIVE (NEGATIVE); TRICHOMONAS VAGINALIS DNA NEGATIVE (NEGATIVE)
== END 2019-08-27 23:59 | disposition home or self-care (01) ==
LOC: LAB.R 07:00
PROVIDERS: ATTEND Obstetrics & Gynecology
DX: O62.9 Abnormality of forces of labor, unspecified (principal); Z3A.00 Weeks of gestation of pregnancy not specified
CPT/HCPCS: 82731; 87661; 87801

== ENCOUNTER 2019-09-15 21:20 | Outpatient (CLI) | payer OTHER ==
[2019-09-15 22:20] LABS: RUPTURE OF MEMBRANES PLUS NEGATIVE (NEGATIVE)
--- NOTE | 2019-09-15 22:52 | PROCEDURE REPORT ---
- HPI Diagnosis/Indication for NST: Other (contraction) - Results and Plan Findings/Impression: minimnal contracions +ffN secondary to recent Sex. Rom + negative Plan: increase fluids, Activity as tolerated.
[2019-09-15 23:15] VITALS: BP 111/70
--- NOTE | 2019-09-16 01:52 | HISTORY & PHYSICAL EXAMINATION ---
DATE OF SERVICE: 09/15/2019 Physician: Noah Hedrick MD IDENTIFICATION: A 19-year-old, G1, P0 female who is 33.6 weeks. CHIEF COMPLAINT: Contractions. HISTORY OF PRESENT ILLNESS: The patient states at 1930, she developed contractions, gradual in onset. They are occurring every 15 minutes and last for maybe 5 minutes in duration. She notes tightening in character. She states she may have felt some fluid loss. At this time, she notes good motion. She does have a history of having Jagdish Alatorre and recently has had two FFNs done. She denies any complications during this . She initially started her care at [facility] and transferred at 29 weeks EGA. Her STI check is negative. Her GBS was 95. Her blood type is O positive. PAST MEDICAL HISTORY: Positive for asthma as well as some anxiety and depression. SURGICAL HISTORY: None. CURRENT MEDICATIONS: Albuterol, Tylenol, sertraline, Flintstones. HABITS: The patient denies use of alcohol, tobacco, is utilizing THC for its diet as well as nausea properties. 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 FAMILY HISTORY: Positive for asthma. PHYSICAL EXAMINATION GENERAL: Well-developed, well-nourished female. She is in no acute distress at this time. HEENT: Pupils are equal, round. Extraocular muscles are intact. Thyroid is not palpably enlarged. LUNGS: Lung luna are clear without rales or wheezes. ABDOMEN: Gravid measures 34 cm in height. The cervix is noted to be closed, long, and high. FFN was positive, but her ROM Plus was negative. She recently had intercourse within the last 24 hours. IMPRESSION 1. A 19-year-old, G1, P0 at 33.6 weeks. 2. Negative ROM Plus. 3. Positive FFN secondary to intercourse. She does not exhibit any cervical change at this time. PLAN: The patient push fluids. She will be able to work as tolerated. She is instructed to followup in the clinic routinely. TD: 09/15/2019 22:50 [facility]
== END 2019-09-15 22:45 | disposition home or self-care (01) ==
LOC: WFO 21:20 → FBP 21:21 → WFO 22:45
PROVIDERS: ATTEND Obstetrics & Gynecology
DX: O26.893 Other specified pregnancy related conditions, third trimester (principal); O99.343 Other mental disorders complicating pregnancy, third trimester; F41.8 Other specified anxiety disorders; O99.513 Diseases of the respiratory system complicating pregnancy, third trimester; J45.909 Unspecified asthma, uncomplicated; Z3A.33 33 weeks gestation of pregnancy
CPT/HCPCS: 82731; 84112; 99213; 99214

== ENCOUNTER 2019-09-27 07:00 | Outpatient (CLI) | payer OTHER ==
[2019-09-27 22:41] LABS: TRICHOMONAS VAGINALIS DNA NEGATIVE (NEGATIVE)
== END 2019-09-27 23:59 | disposition home or self-care (01) ==
LOC: LAB.R 07:00
PROVIDERS: ATTEND Obstetrics & Gynecology
DX: Z11.3 Encounter for screening for infections with a predominantly sexual mode of transmission (principal)
CPT/HCPCS: 87491; 87591; 87661; 87797

== ENCOUNTER 2019-09-27 10:13 | Outpatient (CLI) | payer OTHER ==
[2019-09-27 10:27] VITALS: BP 109/64
--- NOTE | 2019-10-03 10:01 | PROCEDURE REPORT ---
- HPI Diagnosis/Indication for NST: Intrauterine growth restriction Current EDU 10/28/19 Gestation 35 Weeks and 4 Days 1 Para 0 Vital Signs Temperature 36.5 C 09/27/19 10:25 Heart Rate 79 09/27/19 10:25 Respiratory Rate 18 09/27/19 10:25 Blood Pressure 109/64 09/27/19 10:25 O2 Saturation 100 09/27/19 10:25 Temperature 36.5 C 09/27/19 10:25 Heart Rate 79 09/27/19 10:25 Respiratory Rate 18 09/27/19 10:25 Blood Pressure 109/64 09/27/19 10:25 O2 Saturation 100 09/27/19 10:25 - NST Procedure NST Procedure Start Date 09/27/19 Start Time 10:25 Stop Time 10:50 Vibroacoustic Stimulation Used No Patient States Movement Yes - Results and Plan Findings/Impression: reactive NST Plan: US for growth
== END 2019-09-27 10:59 | disposition home or self-care (01) ==
LOC: WFO 10:13 → FBP 10:14 → WFO 10:59
PROVIDERS: ATTEND Obstetrics & Gynecology
DX: O36.5930 Maternal care for other known or suspected poor fetal growth, third trimester, not applicable or unspecified (principal); Z3A.35 35 weeks gestation of pregnancy; Z11.3 Encounter for screening for infections with a predominantly sexual mode of transmission
CPT/HCPCS: 59025; 87491; 87591; 87661; 87797

== ENCOUNTER 2019-10-19 18:51 | Outpatient (CLI) | payer OTHER ==
[2019-10-19 19:36] VITALS: BP 125/79
--- NOTE | 2019-10-23 10:52 | PROVIDER PROGRESS NOTE ---
- HPI Chief Complaint: Labor Check Current : Current EDU 10/29/19 Gestation 38 Weeks and 4 Days 1 Para 0 Vital Signs Temperature 36.8 C 10/19/19 19:29 Heart Rate 86 10/19/19 19:29 Respiratory Rate 22 10/19/19 19:29 Blood Pressure 125/79 10/19/19 19:29 O2 Saturation 100 10/19/19 19:29 Temperature 36.8 C 10/19/19 19:30 Heart Rate 86 10/19/19 19:29 Respiratory Rate 22 10/19/19 19:29 Blood Pressure 125/79 10/19/19 19:29 O2 Saturation 100 10/19/19 19:29 - Exam 0/80%/mid per nurse - Procedures OB Procedure Performed: NST (reactive) NST Procedure: NST Procedure Start Date 10/19/19 Start Time 19:00 Stop Time 20:00 Vibroacoustic Stimulation Used No Patient States Movement Yes Service Date of procedure: 10/19/19 Findings: contractions decreased. not in labor - Plan Plan: sent home. reviewed labor, SROM, FM
== END 2019-10-19 21:00 | disposition home or self-care (01) ==
LOC: WFO 18:51 → FBP 18:53 → WFO 21:00
PROVIDERS: ATTEND Obstetrics & Gynecology
DX: O99.89 Other specified diseases and conditions complicating pregnancy, childbirth and the puerperium (principal); Z3A.38 38 weeks gestation of pregnancy
CPT/HCPCS: 99213

== ENCOUNTER 2019-10-28 07:50 | Inpatient (IN) | payer OTHER ==
[2019-10-28] MEDS ORDERED: LACTATED RINGERS 1,000 ML IV ONE ×4 (08:23→15:40)
[2019-10-28] MEDS ORDERED: SODIUM CHLORIDE FLUSH 0.9% 10 ML SYRINGE IVP PRN ×2 (08:31→15:51)
[2019-10-28] MEDS ORDERED: fentaNYL 100 MCG/2 ML VIAL IVP PRN (08:31)
[2019-10-28] MEDS ORDERED: OXYTOCIN/SODIUM CHLORIDE 500 ML IV PRN (08:31)
--- NOTE | 2019-10-28 08:43 | HISTORY & PHYSICAL EXAMINATION ---
Admit History - Visit Reason Visit Reason: Contractions, Other (19yo G1 GBS neg at 40 weeks by LMP c/w first trimester scan presents with increasing contractions overnight. Noted fluid leak starting at 0430 today. No bleeding, scant amount of bloody show. Also c/o decreased movement over the past few hours. No n/v/f/c or dysuria. No other complaints.) - : 1 Risk/History: positive: Other (Asthma; uses daily inhaler Anxiety/depression) Complications This : positive: Other (Maternal obesity, short stature) Smoking Status: Never smoker - Mother's Labs Mother's Blood Type: positive: O Mother's RH: positive: Positive GBS: positive: Group B Step Negative Rubella Status: positive: Non-immune (RPR/HIV/HepB neg GC/chlam neg Glucola 95 Varicella non-immune Tdap and flu vax given 07/31/19 and 05/15/19 resp) Meds/Allgy - Home Medications Home Medications: Ambulatory Orders Medication Instructions Recorded Confirmed Albuterol 2.5 mg INH Q4H PRN 05/01/18 10/28/19 - Allergies Allergies/Adverse Reactions: Allergies Allergy/AdvReac Type Severity Reaction Status Date / Time Penicillins Allergy Intermediate Hives Verified 10/28/19 08:51 Review of Systems - All Other Systems All Other Systems: reports: Reviewed and negative Physical - Abdominal Exam Vital Signs: Temp Pulse Resp BP Pulse Ox 97.7 F 71 18 105/70 100 10/28/19 08:13 10/28/19 08:13 10/28/19 08:13 10/28/19 08:13 10/28/19 08:13 Contraction Frequency (min/apart): q2-3 Contraction Intensity: positive: Moderate to strong Uterine Resting Tone: positive: Soft - Monitoring Strip Review: positive: Category I - Presentation Presentation: positive: Vertex (By bedside scan) - Vaginal Exam Membranes: positive: Membranes ruptured Dilation (in cm): 3-4 visually Effacement (%): 80% Station: positive: 0 Cervical Position: positive: Midposition Exam - Exam Vital Signs: Vital Signs (72 hours) 10/28/19 08:13 Temperature 97.7 F Heart Rate [ 71 Apical] Respiratory 18 Rate Blood Pressure 105/70 [Right Brachial artery] O2 Saturation 100 General: Alert, Oriented x3, Moderate distress (Distress with contractions) Lungs: Clear to auscultation, Normal air movement Cardiovascular: Regular rate, Normal S1, Normal S2, No murmurs Abdomen: Normal bowel sounds, Soft, No tenderness (Gravid S=D), No masses Neurological: Normal speech, Normal tone Psych/Mental Status: Mental status NL Assessment/Plan - Assessment/Plan Assessment: 19yo G1 at 40 weeks in early labor, SROM at 0430 GBS neg Planning epidural Initiate pitocin if no progress. CBC, T&S Expect
[2019-10-28] MEDS: LACTATED RINGERS 1,000 ML IV SCH ×3 (08:48→13:38)
[2019-10-28 08:55] LABS: BASOPHILS % (AUTO) 0.3 %; EOSINOPHILS # (AUTO) 0.1 10^3/uL (0.0-0.7); EOSINOPHILS % (AUTO) 0.6 %; HGB - HEMOGLOBIN 13.5 g/dL (12.0-16.0); LYMPHOCYTES # (AUTO) 2.6 10^3/uL (1.5-3.5); LYMPHOCYTES % (AUTO) 20.3 %; MEAN CORPUSCULAR HEMOGLOBIN 31.3 pg (27.0-31.0); MEAN CORPUSCULAR HGB CONC 33.4 g/dL (32.0-36.0); MEAN CORPUSCULAR VOLUME 93.7 fL (81.0-99.0); MEAN PLATELET VOLUME 11.2 fL (7.9-10.8); MONOCYTES # (AUTO) 0.8 10^3/uL (0.0-1.0); MONOCYTES % (AUTO) 6.3 %; NEUTROPHILS # (AUTO) 9.3 10^3/uL (1.5-6.6); NEUTROPHILS % (AUTO) 71.7 %; PLT - PLATELET COUNT 234 10^3/uL (130-450); RED BLOOD COUNT 4.31 10^6/uL (4.20-5.40); RED CELL DISTRIBUTION WIDTH 12.6 % (12.0-15.0)
[2019-10-28] MEDS ORDERED: SODIUM CHLORIDE FLUSH 0.9% 10 ML SYRINGE IVP SCH (09:00)
[2019-10-28] MEDS ORDERED: ROPIVACAINE 0.2% 200 MG/100 ML BAG EP ONE (09:19)
[2019-10-28] MEDS ORDERED: LIDOCAINE-MPF 1% 30 ML VIAL ONE (09:19)
[2019-10-28] MEDS ORDERED: NALBUPHINE 10 MG/ML AMP IVP PRN (09:53)
[2019-10-28] MEDS ORDERED: NALOXONE 0.4 MG/ML VIAL IVP PRN (09:53)
[2019-10-28] MEDS ORDERED: ROPIVACAINE 0.2% 200 MG/100 ML BAG EP PRN (09:53)
[2019-10-28] MEDS ORDERED: diphenhydrAMINE INJ 50 MG/ML VIAL IVP PRN (09:53)
[2019-10-28] MEDS ORDERED: ONDANSETRON 4 MG/2 ML VIAL IVP PRN (09:53)
[2019-10-28] MEDS ORDERED: ePHEDrine 50 MG/ML VIAL IVP PRN (09:53)
[2019-10-28] MEDS ORDERED: LACTATED RINGERS 500 ML IV ONE (09:53)
[2019-10-28] MEDS ORDERED: METOCLOPRAMIDE 10 MG/2 ML VIAL IVP PRN (09:53)
--- NOTE | 2019-10-28 09:56 | ANESTHESIA ---
Pre-Anesthesia VS, & Labs - Diagnosis active labor/iup - Procedure GIDEON Vital Signs: Temp Pulse Resp BP Pulse Ox 36.5 C 71 18 105/70 100 10/28/19 08:13 10/28/19 08:13 10/28/19 08:13 10/28/19 08:13 10/28/19 08:13 Height 5 ft Weight (kg) 68.039 kg Body Mass Index 25.4 - Is Patient ?: Yes - Lab Results Current Lab Results: Laboratory Tests 10/28/19 08:41: WBC 13.0 H, RBC 4.31, Hgb 13.5, Hct 40.4, MCV 93.7, MCH 31.3 H, MCHC 33.4, RDW 12.6, Plt Count 234, MPV 11.2 H, Neut # (Auto) 9.3 H, Lymph # (Auto) 2.6, [place] # (Auto) 0.8, Eos # (Auto) 0.1, Baso # (Auto) 0.0, Absolute Nucleated RBC 0.00, Nucleated RBC % 0.0 Fish Bones: 10/28/19 08:41 Home Medications and Allergies Active Medications Fentanyl (Fentanyl) 50 mcg IVP Q1H PRN PRN Reason: PAIN Lactated Ringer's (Lr) 1,000 mls @ 250 mls/hr IV .Q4H [facility] Last Admin: 10/28/19 09:41 Dose: 250 mls/hr Oxytocin/Sodium Chloride (Pitocin/Sodium Chloride) 500 mls @ 999 mls/hr IV PRN PRN; Protocol PRN Reason: POST- HEMORR PREVENTION Ondansetron HCl (Zofran Inj) 4 mg IVP Q4H PRN PRN Reason: Nausea / Vomiting Sodium Chloride (Normal Saline Flush 0.9%) 10 ml IVP PRN PRN PRN Reason: NEEDED PER PROVIDER ORDERS Sodium Chloride (Normal Saline Flush 0.9%) 10 ml IVP 0100,0900,1700 [facility] Albuterol 2.5 mg INH Q4H PRN 05/01/18 Allergies/Adverse Reactions: Allergies Allergy/AdvReac Type Severity Reaction Status Date / Time Penicillins Allergy Intermediate Hives Verified 10/28/19 08:51 Anes History & Medical History - Anesthetic History Anesthesia Complications: reports: Other-see comment (no previous anesthetic, no family history of anesthetic complications) Family history of Anesthesia Complications: Denies Family history of Malignant Hyperthermia: Denies - Medical History Cardiovascular: reports: None Pulmonary: reports: Asthma Gastrointestinal: reports: None Urinary: reports: None Neuro: reports: Migraines Musculoskeletal: reports: Fibromyalgia, Chronic back pain Endocrine/Autoimmune: reports: None Blood Disorders: reports: None Skin: reports: None Smoking Status: Never smoker Psychosocial: reports: No issues indicated - Obstetrical History : 1 Events: positive: Other (Asthma; uses daily inhaler Anxiety/depression) Complications: positive: Other (Maternal obesity, short stature) Exam General: Alert, Oriented x3, Cooperative, No acute distress Dental: WNL Mouth Openin Fingerbreadth Neck Mobility: Normal Mallampati classification: II Thyromental Distance: 4-6 cm Respiratory: Lungs clear, Normal breath sounds, No respiratory distress, No accessory muscle use Cardiovascular: Regular rate, Normal S1, Normal S2, No murmurs Abdomen: Normal bowel sounds, Soft, No tenderness, No hepatospenomegaly, No masses Extremities: No clubbing, No cyanosis, No edema, Normal pulses, No tenderness/swelling Neurological: Normal gait, Normal speech, Strength at 5/5 X4 ext, Normal tone, Sensation intact, Cranial nerves 3-12 NL, Reflexes 2+ Mental/Cognitive Status: Alert/Oriented X3, Normal for patient Cognitive Status: Within normal limits Plan Anesthesia Type: Epidural Consent for Procedure(s) Verified and Reviewed: Yes Code Status: Attempt Resuscitation ASA classification: 2-Mild systemic disease Is this case an emergency?: No
--- NOTE | 2019-10-28 10:40 | PROVIDER PROGRESS NOTE ---
Subjective - Prog Note Date Prog Note Date: 10/28/19 Prog Note Time: 10:38 - Subjective Subjective: Very comfortable now. Wilkins placed Labs reviewed; mild anemia Contractions markedly spaced, mild to palpation Category 1 tracing. Exam deferred. Will start pitocin Objective - Vital Signs/Intake & Output Vital Signs: Vital Signs x48h Temp Pulse Resp BP Pulse Ox 10/28/19 08:13 97.7 F 71 18 105/70 100 Intake & Output: Intake & Output 10/25/19 10/26/19 10/27/19 10/28/19 23:59 23:59 23:59 23:59 Intake Total 220.833 Balance 220.833 - Lab Results Fish Bones: 10/28/19 08:41 Other Labs: Lab Results x24hrs 10/28/19 Range/Units 08:41 WBC 13.0 H (4.8-10.8) x10^3/uL RBC 4.31 (4.20-5.40) 10^6/uL Hgb 13.5 (12.0-16.0) g/dL Hct 40.4 (37.0-47.0) % MCV 93.7 (81.0-99.0) fL MCH 31.3 H (27.0-31.0) pg MCHC 33.4 (32.0-36.0) g/dL RDW 12.6 (12.0-15.0) % Plt Count 234 (130-450) 10^3/uL MPV 11.2 H (7.9-10.8) fL Neut # (Auto) 9.3 H (1.5-6.6) 10^3/uL Lymph # (Auto) 2.6 (1.5-3.5) 10^3/uL [place] # (Auto) 0.8 (0.0-1.0) 10^3/uL Eos # (Auto) 0.1 (0.0-0.7) 10^3/uL Baso # (Auto) 0.0 (0.0-0.1) 10^3/uL Absolute Nucleated RBC 0.00 x10^3/uL Nucleated RBC % 0.0 /100WBC
[2019-10-28] MEDS ORDERED: OXYTOCIN/SODIUM CHLORIDE 500 ML IV SCH (10:48)
--- NOTE | 2019-10-28 11:04 | PROVIDER PROGRESS NOTE ---
Subjective - Prog Note Date Prog Note Date: 10/28/19 Prog Note Time: 11:02 - Subjective Subjective: Very comfortable Wilkins returned 350cc clear urine VSS afeb Variable decels x2. Spontaneous recovery. Moderate variability with accels in between. Decels lasting ~40s. Cervix unchanged; /-1 Pitocin starting. Objective - Vital Signs/Intake & Output Vital Signs: Vital Signs x48h Temp Pulse Resp BP Pulse Ox 10/28/19 08:13 97.7 F 71 18 105/70 100 Intake & Output: Intake & Output 10/25/19 10/26/19 10/27/19 10/28/19 23:59 23:59 23:59 23:59 Intake Total 220.833 Balance 220.833 - Lab Results Fish Bones: 10/28/19 08:41 Other Labs: Lab Results x24hrs 10/28/19 Range/Units 08:41 WBC 13.0 H (4.8-10.8) x10^3/uL RBC 4.31 (4.20-5.40) 10^6/uL Hgb 13.5 (12.0-16.0) g/dL Hct 40.4 (37.0-47.0) % MCV 93.7 (81.0-99.0) fL MCH 31.3 H (27.0-31.0) pg MCHC 33.4 (32.0-36.0) g/dL RDW 12.6 (12.0-15.0) % Plt Count 234 (130-450) 10^3/uL MPV 11.2 H (7.9-10.8) fL Neut # (Auto) 9.3 H (1.5-6.6) 10^3/uL Lymph # (Auto) 2.6 (1.5-3.5) 10^3/uL [place] # (Auto) 0.8 (0.0-1.0) 10^3/uL Eos # (Auto) 0.1 (0.0-0.7) 10^3/uL Baso # (Auto) 0.0 (0.0-0.1) 10^3/uL Absolute Nucleated RBC 0.00 x10^3/uL Nucleated RBC % 0.0 /100WBC
[2019-10-28] MEDS: OXYTOCIN/SODIUM CHLORIDE 500 ML IV SCH ×2 (11:08→17:00)
--- NOTE | 2019-10-28 11:50 | PROVIDER PROGRESS NOTE ---
Subjective - Prog Note Date Prog Note Date: 10/28/19 Prog Note Time: 11:48 - Subjective Subjective: Continues very comfortable VSS afebrile Cat 2 tracing with continued intermittent variable decels. Contractions ~4-8, not tracing well. Pit at 3mu/min Exam deferred. Turned again. Continue to increase pit if possible. Contractions inadequate at this point. May need to consider moving to delivery. Objective - Vital Signs/Intake & Output Vital Signs: Vital Signs x48h Temp Pulse Resp BP Pulse Ox 10/28/19 08:13 97.7 F 71 18 105/70 100 Intake & Output: Intake & Output 10/25/19 10/26/19 10/27/19 10/28/19 23:59 23:59 23:59 23:59 Intake Total 220.833 Balance 220.833 - Lab Results Fish Bones: 10/28/19 08:41 Other Labs: Lab Results x24hrs 10/28/19 10/28/19 Range/Units 10:30 08:41 WBC 13.0 H (4.8-10.8) x10^3/uL RBC 4.31 (4.20-5.40) 10^6/uL Hgb 13.5 (12.0-16.0) g/dL Hct 40.4 (37.0-47.0) % MCV 93.7 (81.0-99.0) fL MCH 31.3 H (27.0-31.0) pg MCHC 33.4 (32.0-36.0) g/dL RDW 12.6 (12.0-15.0) % Plt Count 234 (130-450) 10^3/uL MPV 11.2 H (7.9-10.8) fL Neut # (Auto) 9.3 H (1.5-6.6) 10^3/uL Lymph # (Auto) 2.6 (1.5-3.5) 10^3/uL [place] # (Auto) 0.8 (0.0-1.0) 10^3/uL Eos # (Auto) 0.1 (0.0-0.7) 10^3/uL Baso # (Auto) 0.0 (0.0-0.1) 10^3/uL Absolute Nucleated RBC 0.00 x10^3/uL Nucleated RBC % 0.0 /100WBC Blood Type O POSITIVE Antibody Screen NEGATIVE
--- NOTE | 2019-10-28 12:12 | PROVIDER PROGRESS NOTE ---
Subjective - Prog Note Date Prog Note Date: 10/28/19 Prog Note Time: 12:10 Objective - Vital Signs/Intake & Output Vital Signs: Vital Signs x48h Temp Pulse Resp BP Pulse Ox 10/28/19 08:13 97.7 F 71 18 105/70 100 Intake & Output: Intake & Output 10/25/19 10/26/19 10/27/19 10/28/19 23:59 23:59 23:59 23:59 Intake Total 220.833 Balance 220.833 - Lab Results Fish Bones: 10/28/19 08:41 Other Labs: Lab Results x24hrs 10/28/19 10/28/19 Range/Units 10:30 08:41 WBC 13.0 H (4.8-10.8) x10^3/uL RBC 4.31 (4.20-5.40) 10^6/uL Hgb 13.5 (12.0-16.0) g/dL Hct 40.4 (37.0-47.0) % MCV 93.7 (81.0-99.0) fL MCH 31.3 H (27.0-31.0) pg MCHC 33.4 (32.0-36.0) g/dL RDW 12.6 (12.0-15.0) % Plt Count 234 (130-450) 10^3/uL MPV 11.2 H (7.9-10.8) fL Neut # (Auto) 9.3 H (1.5-6.6) 10^3/uL Lymph # (Auto) 2.6 (1.5-3.5) 10^3/uL [place] # (Auto) 0.8 (0.0-1.0) 10^3/uL Eos # (Auto) 0.1 (0.0-0.7) 10^3/uL Baso # (Auto) 0.0 (0.0-0.1) 10^3/uL Absolute Nucleated RBC 0.00 x10^3/uL Nucleated RBC % 0.0 /100WBC Blood Type O POSITIVE Antibody Screen NEGATIVE - Other Results/Comments Other Results/Comments: IUPC placed; impossible to accurately assess contractions to increase pitocin. Will increase as possible. No recent decels. Continue to monitor
[2019-10-28] MEDS ORDERED: ceFAZolin 2 GM in SODIUM CHLORIDE 0.9% 100ML 100 ML IV ONE (12:49)
[2019-10-28] MEDS ORDERED: CITRIC ACID/SODIUM CITRATE 15 ML UDC PO ONE ×2 (12:50→12:56)
--- NOTE | 2019-10-28 12:52 | PROVIDER PROGRESS NOTE ---
Subjective - Prog Note Date Prog Note Date: 10/28/19 Prog Note Time: 12:50 Objective - Vital Signs/Intake & Output Vital Signs: Vital Signs x48h Temp Pulse Resp BP Pulse Ox 10/28/19 08:13 97.7 F 71 18 105/70 100 Intake & Output: Intake & Output 10/25/19 10/26/19 10/27/19 10/28/19 23:59 23:59 23:59 23:59 Intake Total 220.833 Balance 220.833 - Lab Results Fish Bones: 10/28/19 08:41 Other Labs: Lab Results x24hrs 10/28/19 10/28/19 Range/Units 10:30 08:41 WBC 13.0 H (4.8-10.8) x10^3/uL RBC 4.31 (4.20-5.40) 10^6/uL Hgb 13.5 (12.0-16.0) g/dL Hct 40.4 (37.0-47.0) % MCV 93.7 (81.0-99.0) fL MCH 31.3 H (27.0-31.0) pg MCHC 33.4 (32.0-36.0) g/dL RDW 12.6 (12.0-15.0) % Plt Count 234 (130-450) 10^3/uL MPV 11.2 H (7.9-10.8) fL Neut # (Auto) 9.3 H (1.5-6.6) 10^3/uL Lymph # (Auto) 2.6 (1.5-3.5) 10^3/uL [place] # (Auto) 0.8 (0.0-1.0) 10^3/uL Eos # (Auto) 0.1 (0.0-0.7) 10^3/uL Baso # (Auto) 0.0 (0.0-0.1) 10^3/uL Absolute Nucleated RBC 0.00 x10^3/uL Nucleated RBC % 0.0 /100WBC Blood Type O POSITIVE Antibody Screen NEGATIVE - Other Results/Comments Other Results/Comments: Pitocin at 5mu/min. Contractions not yet adequate however now with recurrent late deceleration. Moderate variability in between is reassuring however is remote from delivery. Discussed this with patient and her who wish to proceed with primary LTCS. Consent obtained
[2019-10-28] MEDS ORDERED: AZITHROMYCIN INJ 500 MG in SODIUM CHLORIDE 0.9% 250 ML IV ONE (13:00)
[2019-10-28] MEDS ORDERED: ROPIVACAINE 0.5% PF 20 ML AMPULE ONE (13:21)
[2019-10-28] MEDS ORDERED: CARBOPROST TROMETHAMINE 250 MCG/ML AMP IM ONE (13:22)
[2019-10-28] MEDS ORDERED: METHYLERGONOVINE 0.2 MG/ML VIAL ONE (13:22)
[2019-10-28] MEDS: ONDANSETRON 4 MG/2 ML VIAL IVP PRN ×2 (13:37→18:04)
[2019-10-28] MEDS ORDERED: LIDOCAINE 1%-EPI 1:100000 20 ML MDV SUBQ ONE (14:31)
--- NOTE | 2019-10-28 15:48 | DELIVERY NOTE ---
Delivery Note - Labor Labor: positive: Augmented by oxytocin - Delivery Method Delivery Method: positive: Primary ( intolerance of labor remote from delivery) - Presentation Presentation: positive: Vertex, Other (OP) - Nuchal Cord Nuchal Cord: positive: None - Anesthetic Anesthetic Type: Anesthetic: positive: Bupivicaine - 0.5% plain Volume: positive: Other (10cc) - Amniotic Fluid Description Amniotic Fluid Description: positive: Clear - Delivery Outcome Delivery Outcome: positive: Livebirth (male 2551gm) - Hegins: positive: Suctioned, Warmed, Warmer used sex: positive: Male - Cord Cord: positive: 3 vessels - Placenta Placenta: positive: Intact - Estimated Blood Loss Estimated Blood Loss (in cc): 500 - Post Delivery Events Post Delivery Events: positive: No post delivery events (Apgars 8/9)
[2019-10-28] MEDS ORDERED: ACETAMINOPHEN 500 MG TABLET PO SCH (16:00)
--- NOTE | 2019-10-28 16:00 | OPERATIVE REPORT ---
Operative Report - General Admit Date: 10/28/19 Procedure Date: 10/28/19 Planned Procedure: Primary LTCS Pre-Op Diagnosis: intolerance of labor remote from delivery Procedure Performed: Primary LTCS Post Op Diagnosis: Same - Procedure Note Primary Surgeon: Rosario Jalloh MD Secondary Surgeon: Vicky Lopez MD Anesthesia Provider: FREDIS Domingo Anesthesia Technique: Epidural, Local Pathology: Cord blood IV Fluids (mL): 600 Estimated Blood Loss (mL): 500 Urine Output (mL): 300 Indications: intolerance of labor remote from delivery Findings: 2551gm male infant delivered from OP apgars 8/9. Vigorous cry. Normal uterus, adnexae Complications: None - Other Other Information/Narrative: Pt was brought to the operating room. Her epidural was dosed, antibiotic were given. The vagina and abdomen were prepped and draped in usual sterile fashion. An incision was made in the Pfannensteil manner and carried to fascia with the Bovie. The fascial incision was extended laterally with Gar scissors. The rectus was bluntly divided along the midline, the peritoneum elevated and sharply entered. The opening was sharply extended with good visualization of the bladder. The Willy retractor was placed. The uterus was incised above the bladder reflection and the incision bluntly extended in a cephalo-caudad manner. The head was flexed and elevated into the hysterotomy and delivered with fundal pressure without difficulty. The cord was clamped and cut and he was handed off the field. The placenta was delivered with traction and uterine massage intact with a normally inserted 3 vessel cord. The margins of the hysterotomy were clamped. It was closed in a running locked fashion with 0 vicryl followed by a second horizontal imbricating layer. Good hemostasis was noted. The rectus was reapproximated with several 2-0 vicryl sutures in an inte rrupted figure of eight manner. The fascia was closed from either end with 0 vicryl in a running fashion tied in the middle. The subcutaneous layer was closed with 2-0 vicryl. A subcuticular layer of 4-0 monocryl was placed and the skin was closed with Dermabond. Sponge and instrument counts were correct x3. I was present and performed the entire procedure.
[2019-10-28] MEDS ORDERED: ALBUTEROL NEB 2.5 MG/3 ML INH PRN (16:21)
[2019-10-28] MEDS ORDERED: miSOPROStoL 200 MCG TABLET ONE (17:17)
[2019-10-28] MEDS ORDERED: miSOPROStoL 100 MCG TABLET PO STA (17:25)
--- NOTE | 2019-10-28 18:15 | PROVIDER PROGRESS NOTE ---
Subjective - Prog Note Date Prog Note Date: 10/28/19 Prog Note Time: 18:11 - Subjective Subjective: Tired. Reports pain well controlled. Still a bit nauseous, no vomiting. Moving both legs, not up yet. RT here to instruct IS use. Initiating . ~300cc blood and clot expressed by nurse, 600mcg PO miso given VSS afeb Urine out 120cc last hour. Clear CV RRR RESP CTA, no wheezes ABD soft, non-distended non-tender. Fundus firm below umbilicus. No further bleeding or clots. Incision D&I A/P Now stable post op. Continue Albuterol and IS Ambulate when able. Reg diet. Continue other routine post op care. Objective - Vital Signs/Intake & Output Vital Signs: Vital Signs x48h Temp Pulse Pulse Resp BP BP Pulse Ox 10/28/19 18:09 91 129/83 H 100 10/28/19 17:50 83 16 124/81 H 100 10/28/19 17:44 100 16 136/70 H 100 10/28/19 17:25 97.7 F 133/81 H 10/28/19 17:00 89 107/68 100 10/28/19 16:48 88 16 110/77 100 10/28/19 16:05 77 16 135/89 H 100 10/28/19 16:00 90 16 132/91 H 100 10/28/19 15:55 99.3 F 98 16 100/70 100 10/28/19 15:51 100 14 112/46 L 100 10/28/19 15:46 82 12 122/88 H 100 10/28/19 15:40 99.0 F 88 14 128/86 H 100 10/28/19 13:53 99.3 F 77 18 100 Intake & Output: Intake & Output 10/25/19 10/26/19 10/27/19 10/28/19 23:59 23:59 23:59 23:59 Intake Total 1214.200 Output Total 900 Balance 314.200 - Lab Results Fish Bones: 10/28/19 08:41 Other Labs: Lab Results x24hrs 10/28/19 10/28/19 Range/Units 10:30 08:41 WBC 13.0 H (4.8-10.8) x10^3/uL RBC 4.31 (4.20-5.40) 10^6/uL Hgb 13.5 (12.0-16.0) g/dL Hct 40.4 (37.0-47.0) % MCV 93.7 (81.0-99.0) fL MCH 31.3 H (27.0-31.0) pg MCHC 33.4 (32.0-36.0) g/dL RDW 12.6 (12.0-15.0) % Plt Count 234 (130-450) 10^3/uL MPV 11.2 H (7.9-10.8) fL Neut # (Auto) 9.3 H (1.5-6.6) 10^3/uL Lymph # (Auto) 2.6 (1.5-3.5) 10^3/uL [place] # (Auto) 0.8 (0.0-1.0) 10^3/uL Eos # (Auto) 0.1 (0.0-0.7) 10^3/uL Baso # (Auto) 0.0 (0.0-0.1) 10^3/uL Absolute Nucleated RBC 0.00 x10^3/uL Nucleated RBC % 0.0 /100WBC Blood Type O POSITIVE Antibody Screen NEGATIVE
[2019-10-28] MEDS: DOCUSATE SODIUM 100 MG CAPSULE PO PRN (21:04)
[2019-10-28] MEDS: KETOROLAC 30 MG/ML VIAL IVP SCH (21:06)
[2019-10-28] MEDS: SODIUM CHLORIDE FLUSH 0.9% 10 ML SYRINGE IVP SCH (21:08)
[2019-10-29] MEDS: KETOROLAC 30 MG/ML VIAL IVP SCH ×3 (03:03→16:36)
[2019-10-29] MEDS: oxyCODONE 5 MG TABLET PO PRN ×5 (04:28→22:36)
[2019-10-29] MEDS: SODIUM CHLORIDE FLUSH 0.9% 10 ML SYRINGE IVP SCH ×2 (08:56→09:17)
[2019-10-29] MEDS: ACETAMINOPHEN 325 MG TABLET PO SCH ×2 (08:58→18:27)
[2019-10-29] MEDS: DOCUSATE SODIUM 100 MG CAPSULE PO PRN ×2 (08:58→21:18)
[2019-10-29] MEDS ORDERED: IRON DEXTRAN 1,000 MG in SODIUM CHLORIDE 0.9% 250 ML IV ONE (09:00)
--- NOTE | 2019-10-29 10:15 | PROVIDER PROGRESS NOTE ---
Subjective - Prog Note Date Prog Note Date: 10/29/19 Prog Note Time: 10:12 - Subjective Subjective: POD 1 Feeling a little nauseous, no vomiting. Ambulating. Wilkins removed, voiding without difficulty. Scant lochia VSS afeb Abd soft, non-tender. Fundus firm below umbilicus. Incision D&I Extr without significant edema. Hgb 9.6 S/P IV iron dextran A/P Stable, encourage brestfeeding, still needing assistance. Ambulate, continue resp care w IS and inhaler as ordered. Continue routine care. Objective - Vital Signs/Intake & Output Vital Signs: Vital Signs x48h Temp Pulse Resp BP Pulse Ox 10/29/19 09:00 73 16 100 10/29/19 08:15 98.4 F 75 18 113/66 100 10/29/19 06:45 73 15 99 10/29/19 05:35 68 15 98 10/29/19 04:10 98.6 F 77 16 121/53 L 98 10/29/19 03:09 73 16 98 Intake & Output: Intake & Output 10/26/19 10/27/19 10/28/19 10/29/19 23:59 23:59 23:59 23:59 Intake Total 2714.200 650 Output Total 1100 1675 Balance 1614.200 -1025 - Lab Results Fish Bones: 10/29/19 05:30 Other Labs: Lab Results x24hrs 10/29/19 10/28/19 Range/Units 05:30 10:30 Hgb 9.6 L (12.0-16.0) g/dL Blood Type O POSITIVE Antibody Screen NEGATIVE
[2019-10-29] MEDS ORDERED: MORPHINE PF 5 MG/10 ML AMP IVP ONE (12:31)
[2019-10-29] MEDS ORDERED: LIDOCAINE-MPF 2% 5 ML VIAL IM ONE (12:31)
[2019-10-29] MEDS ORDERED: MIDAZOLAM 2 MG/2 ML VIAL IVP ONE (12:31)
[2019-10-29] MEDS ORDERED: KETAMINE 500 MG/10 ML VIAL IVP ONE (12:31)
[2019-10-29] MEDS: IBUPROFEN 600 MG TABLET PO SCH ×2 (15:33→21:18)
--- NOTE | 2019-10-29 15:55 | PROVIDER PROGRESS NOTE ---
Subjective - Prog Note Date Prog Note Date: 10/29/19 Prog Note Time: 15:53 - Subjective Subjective: Feeling better. Ambulating, tolerating regular diet. Minimal lochia. VSS afeb Abd soft, non-tender, fundus firm. Incision D&I without erythema or induration. A/P Stable. Continue routine care. Continue support. Objective - Vital Signs/Intake & Output Vital Signs: Vital Signs x48h Temp Pulse Resp BP Pulse Ox 10/29/19 12:20 98.8 F 84 17 116/66 98 10/29/19 09:00 73 16 100 10/29/19 08:15 98.4 F 75 18 113/66 100 Intake & Output: Intake & Output 10/26/19 10/27/19 10/28/19 10/29/19 23:59 23:59 23:59 23:59 Intake Total 2714.200 920 Output Total 1100 1675 Balance 1614.200 -755 - Lab Results Fish Bones: 10/29/19 05:30 Other Labs: Lab Results x24hrs 10/29/19 Range/Units 05:30 Hgb 9.6 L (12.0-16.0) g/dL
[2019-10-30] MEDS: ACETAMINOPHEN 325 MG TABLET PO SCH ×3 (02:12→19:43)
[2019-10-30] MEDS: oxyCODONE 5 MG TABLET PO PRN ×5 (02:12→18:25)
[2019-10-30] MEDS: IBUPROFEN 600 MG TABLET PO SCH ×4 (04:49→23:55)
[2019-10-30] MEDS ORDERED: MEASLES,MUMPS & RUBELLA VACC 0.5 ML VIAL SUBQ ONE (10:00)
--- NOTE | 2019-10-30 10:00 | PROVIDER PROGRESS NOTE ---
Subjective - Prog Note Date Prog Note Date: 10/30/19 Prog Note Time: 09:52 - Subjective Subjective: Appetite improving. No n/v. Ambulating, voiding. Normal lochia. Pain well controlled. Baby w significant weight loss; still having issues w feeding. VSS afebrile Abd soft, non-tender. Fundus firm below umbilicus. Incision healing well. No peripheral edema A/P Stable. Continue and pumping support. Tentatively planning DC home tomorrow. MMR today. Objective - Vital Signs/Intake & Output Vital Signs: Vital Signs x48h Temp Pulse Resp BP Pulse Ox 10/30/19 07:20 98.6 F 87 18 121/79 100 10/30/19 06:00 97.7 F 68 16 123/71 100 Intake & Output: Intake & Output 10/27/19 10/28/19 10/29/19 10/30/19 23:59 23:59 23:59 23:59 Intake Total 2714.200 920 Output Total 1100 1675 Balance 1613.148 -314 - Lab Results Fish Bones: 10/29/19 05:30
[2019-10-30] MEDS: DOCUSATE SODIUM 100 MG CAPSULE PO PRN ×2 (10:14→21:04)
[2019-10-31] MEDS: ACETAMINOPHEN 325 MG TABLET PO SCH ×2 (05:01→12:46)
[2019-10-31] MEDS: IBUPROFEN 600 MG TABLET PO SCH ×2 (05:35→12:47)
--- NOTE | 2019-10-31 09:43 | PROVIDER PROGRESS NOTE ---
Subjective - Prog Note Date Prog Note Date: 10/31/19 Prog Note Time: 09:40 - Subjective Subjective: POD 3 Feeling well. Still not much appetite but no vomiting. Voiding, normal BM today. Scant lochia. Milk starting to come in. Baby down 10%, starting to nurse better. Peds will reassess later today. VSS afeb Abd soft, non-tender. Fundus firm below umbilicus. Incision healing well. A/P Stable. Suspect lack of appetite related to marijuana use; was vomiting the entire likely c/w cannibis hyperemesis syndrome. Counseled to quit for good. Continue to support . Pain well controlled. Continue routine care. Objective - Vital Signs/Intake & Output Vital Signs: Vital Signs x48h Temp Pulse Resp BP BP Pulse Ox 10/31/19 07:48 98.6 F 97 16 135/71 H 99 10/31/19 05:10 97.9 F 75 16 128/79 100 Intake & Output: Intake & Output 10/28/19 10/29/19 10/30/19 10/31/19 23:59 23:59 23:59 23:59 Intake Total 2714.200 920 Output Total 1100 1675 Balance 1612.372 -720 - Lab Results Fish Bones: 10/29/19 05:30
--- NOTE | 2019-10-31 17:23 | DISCHARGE SUMMARY ---
"Discharge Summary Admit Date: 10/28/19 Discharge Date: 10/31/19 Discharging Provider: Rosario Jalloh MD Code Status: Attempt Resuscitation Condition at Discharge: Good Discharge Disposition: 01 Home, Self Care - DIAGNOSES Admission Diagnoses: Term in early labor - HPI History of Present Illness: 19yo G1 now P1 GBS neg at 40 weeks by LMP c/w first trimester scan presented with increasing contractions overnight. Noted fluid leak starting at 0430 that day. No bleeding, scant amount of bloody show. Also c/o decreased movement over the preceding few hours. No n/v/f/c or dysuria. No other complaints - CONSULTS | PROCEDURES Procedures: Primary LTCS - HOSPITAL COURSE Hospital Course: PROM was confirmed and while she was selene, over several hours, no progress was noted. An epidural was placed and the contractions decreased. Pitocin was started however heart rate decelerations were noted initially variable in character, then recurrent late decelerations with most contractions. As she was remote from from delivery, it was elected to proceed with primary LTCS. She was brought to the operating room and was delivered of a 2551gm male apgars 8/9 from OP position. EBL was 500cc. She received IV iron . Her POD 1 hgb was 9.6. The baby had difficulty feeding and significant weight loss for the first 2 days and then recovered with good maternal effort. The maternal course was uncomplicated. She was counseled to discontinue marijuana use. She is planning IUD. She was discharged on POD 3 with f/u arranged. - ALLERGIES Allergies/Adverse Reactions: Allergies Allergy/AdvReac Type Severity Reaction Status Date / Time Penicillins Allergy Intermediate Hives Verified 10/28/19 08:51 - MEDICATIONS Home Medications: Ambulatory Orders Medication Instructions Recorded Confirmed Albuterol 2.5 mg INH Q4H PRN 05/01/18 10/28/19 Oxycodone HCl/Acetaminophen 1 each PO Q4HR PRN 10/31/19 10/31/19 [Percocet 2.5-325 mg Tablet] Pnv No.100/Iron/Folic/Dha/Epa 1 tab PO DAILY 10/31/19 10/31/19 [Theranatal One Softgel] - PHYSICAL EXAM AT DISCHARGE General Appearance: positive: No acute distress, Alert Respiratory: positive: No respiratory distress Abdomen: positive: Non-tender (Incision healing well, fundus below umbilicus) Skin: positive: Color nml Extremities: positive: No pedal edema Neurologic/Psychiatric: positive: Oriented x3, Mood/affect nml - LABS Result Diagrams: 10/29/19 05:30"
--- NOTE | 2019-10-31 17:36 | Discharge Plan ---
Discharge Plan Problem Reviewed?: Yes Disposition: Home, Self Care Condition: Good Prescriptions: Oxycodone HCl/Acetaminophen [Percocet 2.5-325 mg Tablet] 1 each PO Q4HR PRN #20 tablet PRN Reason: Pain Diet: Regular Activity Restrictions: pelvic rest Shower Restrictions: No No Smoking: If you smoke, Please STOP! Call for help.
[2019-10-31] MEDS ORDERED: MEASLES,MUMPS & RUBELLA VACC 0.5 ML VIAL SUBQ ONE (18:00)
[2019-10-31 18:06] VITALS: BP 128/70
--- NOTE | 2019-10-31 19:06 | Labor Flowsheet ---
Labor Flowsheet Datetime Report Generated by CPN: 10/31/2019 19:06 Datetime: 10/28/2019 13:45 VITAL SIGNS NBP Sys/Loren/Mean (mmHg): 112 : 83 : 91 Pulse: 95 LaborFlag: Labor Datetime: 10/28/2019 13:42 Communication Comments: anesthesia at bedside consenting patient Datetime: 10/28/2019 13:30 UTERINE ACTIVITY Monitor Mode: Internal Frequency (min): 4-6 Duration (sec): 90-120 ASSESSMENT A Monitor Mode: External US FHR Baseline Rate : 140 FHR Baseline Changes: No Baseline Change Variability: Moderate 6-25 bpm Category: Category I Datetime: 10/28/2019 13:17 Patient Care Comments: waiting for OR team and then will proceed for section Datetime: 10/28/2019 13:00 Decelerations: Late Datetime: 10/28/2019 12:39 MEDICATIONS Pitocin (milliunits): Discontinued COMMUNICATION Communication: RN at Bedside; Provider at Bedside Provider Notified (Name): Dr Erber Datetime: 10/28/2019 12:15 [place] Units (mmHg): 145 Datetime: 10/28/2019 12:03 Monitor Interventions for UA: IUPC Inserted Contraction Comments: IUPC placed by Dr. Jalloh Datetime: 10/28/2019 12:00 Quality: Moderate Pattern: Normal: <= 5 Contractions in 10 Minutes Resting Tone (Palpate): Relaxed Accelerations: 15X15 Datetime: 10/28/2019 11:44 Strip Reviewed by: Dr. Jalloh Datetime: 10/28/2019 11:43 Temperature (C): 37.0 Datetime: 10/28/2019 11:40 PATIENT CARE Patient Position/Activity: Right Extreme Datetime: 10/28/2019 10:56 VAGINAL EXAM Dilatation (cm): 3.0 Effacement (%): 90 Station: -1 Exam by: Dr. Jalloh Provider Reviewed Strip: Yes Datetime: 10/28/2019 09:50 PAIN Pain Scale: 2 Pain Relief Measures: Epidural Given Datetime: 10/28/2019 09:49 SpO2 (%): 100 Datetime: 10/28/2019 09:42 Epidural Procedure Other: Pump Started Datetime: 10/28/2019 09:32 Epidural Procedure: Test Dose Datetime: 10/28/2019 09:23 ANESTHESIA Anesthesia Plans: Epidural Anesthesia Interview: E Epidural Positioning: Sitting Datetime: 10/28/2019 09:10 Pain Presence: Intermittent Pain Type: Cramping Pain Location: Abdomen
== END 2019-10-31 19:05 | disposition home or self-care (01) | DRG 787 ==
LOC: WFO 07:50 → FBP 07:55 → WFO 08:30 → FBP 08:31
PROVIDERS: ADMIT Obstetrics & Gynecology; ATTEND Obstetrics & Gynecology
PROC: 10D00Z1 Extraction of Products of Conception, Low, Open Approach (ICD-10-PCS; principal; 2019-10-28 14:00)
DX: O36.8130 Decreased fetal movements, third trimester, not applicable or unspecified (principal); O99.324 Drug use complicating childbirth; O77.8 Labor and delivery complicated by other evidence of fetal stress; Z37.0 Single live birth; F12.90 Cannabis use, unspecified, uncomplicated; O99.52 Diseases of the respiratory system complicating childbirth; J45.909 Unspecified asthma, uncomplicated; O99.214 Obesity complicating childbirth; O90.81 Anemia of the puerperium; O99.344 Other mental disorders complicating childbirth; F41.9 Anxiety disorder, unspecified; F32.9 Major depressive disorder, single episode, unspecified; Z79.51 Long term (current) use of inhaled steroids; Z3A.40 40 weeks gestation of pregnancy
CPT/HCPCS: 36415; 85018; 85025; 86850; 86900; 86901; 99213; A9270; J1750; J7120

== ENCOUNTER 2020-05-06 08:12 | Emergency (ER) | payer OTHER ==
--- NOTE | 2020-05-06 08:47 | ED Physician Documentation ---
PD HPI ABD PAIN - Stated complaint Stated Complaint: FEMALE - Chief complaint Chief Complaint: Abd Pain - History obtained from History obtained from: Patient - History of Present Illness Timing - onset: Enter time (429), Today Timing - duration: Hours Timing - details: Gradual onset, Still present Quality: Sharp, Pain Location: RLQ Improved by: Laying still Worsened by: Moving, Breathing, Position, Palpation Associated symptoms: Nausea, Vomiting, Constipation Similar symptoms before: Has not had sx before Recently seen: Not recently seen - Additional information Additional information: Previously well 20-year-old female who is 6 months s/p section has developed right lower quadrant abdominal pain last night at about 4:30 in the morning. She has had progression of her pain she is developed some mild nausea and vomiting she did try to eat some crackers this morning they did stay down. She has pain when she goes over the bumps in the road and if she goes to walk each step hurts tremendously. She has low-grade fever. She denies any previous similar episodes or symptoms. Her past medical history is unremarkable with the exception of the section. Review of Systems Constitutional: reports: Fever Eyes: denies: Decreased vision Ears: denies: Ear pain Nose: denies: Congestion Throat: denies: Sore throat Cardiac: denies: Chest pain / pressure, Palpitations Respiratory: denies: Dyspnea, Cough GI: reports: Abdominal Pain, Nausea, Vomiting, Constipation : denies: Dysuria, Frequency Skin: denies: Rash Musculoskeletal: denies: Neck pain, Back pain, Extremity pain Neurologic: denies: Generalized weakness, Focal weakness, Numbness PD PAST MEDICAL HISTORY - Past Medical History Cardiovascular: None Respiratory: Asthma Neuro: Migraines Endocrine/Autoimmune: None GI: None 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 : None HEENT: None Psych: Depression, Anxiety, Panic attacks, ADD/ADHD Musculoskeletal: Fibromyalgia, Chronic back pain Derm: None - Past Surgical History Past Surgical History: No - Present Medications Home Medications: Ambulatory Orders Medication Instructions Recorded Confirmed Albuterol 2.5 mg INH Q4H PRN 05/01/18 10/28/19 Acetaminophen [Tylenol] 650 mg PO Q8H tablet 10/31/19 Albuterol 2.5 mg INH RTQ4H PRN neb 10/31/19 Ibuprofen [Motrin] 600 mg PO Q6HR tablet 10/31/19 Oxycodone HCl/Acetaminophen 1 each PO Q4HR PRN #20 tablet 10/31/19 [Percocet 2.5-325 mg Tablet] Pnv No.100/Iron/Folic/Dha/Epa 1 tab PO DAILY 10/31/19 10/31/19 [Theranatal One Softgel] - Allergies Allergies/Adverse Reactions: Allergies Allergy/AdvReac Type Severity Reaction Status Date / Time Penicillins Allergy Intermediate Hives Verified 05/06/20 08:22 - Social History Does the pt smoke?: No Smoking Status: Never smoker Does the pt drink ETOH?: No Does the pt have substance abuse?: No - Immunizations Immunizations are current?: Yes - POLST Patient has POLST: No PD ED PE NORMAL - Vitals Vital signs reviewed: Yes (Low-grade fever and hypertension) - General General: Alert and oriented X 3, No acute distress, Well developed/nourished - HEENT HEENT: Atraumatic, PERRL, EOMI - Neck Neck: Supple, no meningeal sign - Cardiac Cardiac: RRR, No murmur - Respiratory Respiratory: No respiratory distress, Clear bilaterally - Abdomen Abdomen: Normal bowel sounds, Soft, Non distended, No organomegaly, Other (There is specific right lower quadrant tenderness with referred tenderness to the right lower quadrant as well. There is rebound tenderness referred to the right lower quadrant) - Back Back: No CVA TTP, No spinal TTP - Derm Derm: Normal color, Warm and dry, No rash - Extremities Extremities: No deformity, No edema - Neuro Neuro: Alert and oriented X 3, collections associate 2-12 intact, No motor deficit, No sensory deficit, Normal speech Eye Opening: Spontaneous Motor: Obeys Commands Verbal: Oriented GCS Score: 15 - Psych Psych: Normal mood, Normal affect Results - Vitals Vitals: Vital Signs - 24 hr 05/06/20 05/06/20 08:19 09:30 Temperature 37.8 C H Heart Rate 98 72 Respiratory 18 16 Rate Blood Pressure 142/74 H 102/50 L O2 Saturation 99 67 L Oxygen O2 Source Room air - Labs Labs: Laboratory Tests 05/06/20 05/06/20 05/06/20 08:40 08:40 08:40 WBC 8.6 RBC 4.49 Hgb 14.2 Hct 42.2 MCV 94.0 MCH 31.6 H MCHC 33.6 RDW 12.0 Plt Count 281 MPV 10.5 Neut # (Auto) 5.5 Lymph # (Auto) 2.4 [place] # (Auto) 0.5 Eos # (Auto) 0.1 Baso # (Auto) 0.0 Absolute Nucleated RBC 0.00 Nucleated RBC % 0.0 Sodium 136 Potassium 3.9 Chloride 105 Carbon Dioxide 20 L Anion Gap 11.0 BUN 11 Creatinine 0.6 Estimated GFR (MDRD) 126 Glucose 98 Calcium 9.2 Total Bilirubin 0.6 AST 17 ALT 11 Alkaline Phosphatase 62 Total Protein 7.0 Albumin 4.2 Globulin 2.8 Albumin/Globulin Ratio 1.5 Lipase 25 Urine Color DARK YELLOW Urine Clarity CLEAR Urine pH 6.0 Ur Specific [place] >=1.030 H Urine Protein NEGATIVE Urine Glucose (UA) NEGATIVE Urine Ketones NEGATIVE Urine Occult Blood NEGATIVE Urine Nitrite NEGATIVE Urine Bilirubin NEGATIVE Urine Urobilinogen 0.2 (NORMAL) Ur Leukocyte Esterase NEGATIVE Ur Microscopic Review NOT INDICATED Urine Culture Comments NOT INDICATED Urine HCG, Qual NEGATIVE - Rads (name of study) CT ab/pel w/o Radiology: Prelim report reviewed (Impression: No findings of appendicitis. Nonobstructing 2 mm right renal calculus with no findings of ureteral calculus or hydronephrosis), EMP read indepedently, See rad report pelvic u/s Radiology: Prelim report reviewed (Impression: There is a 1.8 cm cystic follicle seen involving the right ovary, which is considered to be within physiologic limits. IUD is seen at the expected location. More than 12 follicles are seen in the involving the right ovary, which can be seen in patients with polycystic ovarian syndrome), EMP read indepedently, See rad report PD MEDICAL DECISION MAKING - ED course Complexity details: reviewed old records, reviewed results, re-evaluated patient, considered differential, d/w patient, d/w family ED course: 20 y/o female with acute right lower quadrant pain. On initial presentation her exam is concerning for possibility of appendicitis. She was still able to eat and here in the emergency department her pain resolves without specific treatment. CT scan of the abdomen pelvis showed no evidence of appendicitis and there is a question of a cyst on the right ovary. Because of the significant pain the patient was experiencing ultrasound of the pelvis was obtained to rule out torsion. There is no evidence of torsion the ovary has multiple cysts consistent with folliculation related to ovulation. I discussed the findings with the patient and the expectations that she has resolution of her pain without further treatment. Departure - Departure Disposition: 01 Home, Self Care Clinical Impression: Tanisha Condition: Stable Instructions: ED Mid Cycle Pain Tanisha Follow-Up: [facility] [Provider Group] Discharge Date/Time: 05/06/20 10:52
[2020-05-06 08:50] LABS: BASOPHILS % (AUTO) 0.3 %; EOSINOPHILS # (AUTO) 0.1 10^3/uL (0.0-0.7); EOSINOPHILS % (AUTO) 1.3 %; HGB - HEMOGLOBIN 14.2 g/dL (12.0-16.0); LYMPHOCYTES # (AUTO) 2.4 10^3/uL (1.5-3.5); LYMPHOCYTES % (AUTO) 27.5 %; MEAN CORPUSCULAR HEMOGLOBIN 31.6 pg (27.0-31.0); MEAN CORPUSCULAR HGB CONC 33.6 g/dL (32.0-36.0); MEAN PLATELET VOLUME 10.5 fL (7.9-10.8); MONOCYTES # (AUTO) 0.5 10^3/uL (0.0-1.0); MONOCYTES % (AUTO) 6.3 %; NEUTROPHILS # (AUTO) 5.5 10^3/uL (1.5-6.6); NEUTROPHILS % (AUTO) 64.1 %; PLT - PLATELET COUNT 281 10^3/uL (130-450); RED BLOOD COUNT 4.49 10^6/uL (4.20-5.40); WHITE BLOOD COUNT 8.6 x10^3/uL (4.8-10.8)
[2020-05-06 08:57] LABS: BILIRUBIN,URINE NEGATIVE (NEGATIVE); GLUCOSE, URINE (UA) NEGATIVE (NEGATIVE); KETONES,URINE (UA) NEGATIVE (NEGATIVE); LEUKOCYTE ESTERASE, URINE NEGATIVE (NEGATIVE); NITRITE,URINE NEGATIVE (NEGATIVE); OCCULT BLOOD,URINE NEGATIVE (NEGATIVE); PROTEIN,URINE NEGATIVE (NEGATIVE); UROBILINOGEN,URINE 0.2 (NORMAL) E.U./dL (NORMAL)
[2020-05-06 09:00] LABS: CLARITY,URINE CLEAR (CLEAR); HCG UR QUAL NEGATIVE
[2020-05-06 09:30] VITALS: BP 102/50
--- NOTE | 2020-05-06 09:31 | CT Report ---
PROCEDURE: Abdomen/Pelvis WO INDICATIONS: RLQ pain TECHNIQUE: Noncontrast 5 mm thick sections acquired from the diaphragms to the symphysis. 5 mm coronal and sagi ttal reformats were then performed. For radiation dose reduction, the following was used: automated exposure control, adjustment of mA and/or kV according to patient size. COMPARISON: None. FINDINGS: Image quality: Excellent. ABDOMEN: Lung bases: Lung bases are clear. Heart size is normal. Solid organs: Liver and spleen are normal in size. Gallbladder is normal Pancreas is normal in con tours. No adrenal nodules. Nonobstructing calculus in the right interpolar region measuring approxim ately 2 mm. No other urinary tract calculus. No hydronephrosis or hydroureter. No perinephric fat str anding. Peritoneum and bowel: Normal appearance of the appendix. Unenhanced bowel loops demonstrate normal w all thickness and caliber. No free fluid or air. Nodes and vessels: No retroperitoneal or mesenteric adenopathy by size criteria. Aorta and inferior vena cava are normal in caliber. Miscellaneous: No ventral hernias. PELVIS: Genitourinary: Probable right ovarian cyst measuring 1.7 cm. Left ovary unremarkable. IUD in the uter us in appropriate position. Urinary bladder unremarkable. Miscellaneous: No inguinal hernias or adenopathy. Bones: No suspicious bony lesions. No vertebral body compression fractures. IMPRESSION: No findings of appendicitis. Nonobstructing 2 mm right renal calculus with no findings of ureteral calculus or hydroureteronephros is. Reviewed by: Yvan Barajas MD on 05/06/2020 9:29 AM PDT Approved by: Yvan Barajas MD on 05/06/2020 9:29 AM PDT Station ID: [id number]
[2020-05-06 09:36] LABS: ALBUMIN 4.2 g/dL (3.2-5.5); ALBUMIN/GLOBULIN RATIO 1.5 (1.0-2.2); BILIRUBIN,TOTAL 0.6 mg/dL (0.2-1.0); CALCIUM 9.2 mg/dL (8.5-10.3); CREATININE 0.6 mg/dL (0.4-1.0)
--- NOTE | 2020-05-06 10:50 | Ultrasound Report ---
PROCEDURE: Pelvic w/Transvag+Doppler Ltd INDICATIONS: RLQ pain right ovarian cyst TECHNIQUE: Real-time scanning was performed of the pelvic organs, with image documentation. Additional endovagi nal scanning was necessary due to incomplete visualization of the adnexal and endometrial structures by transabdominal scanning. COMPARISON: Correlation is made with the accompanying abdomen and pelvis CT, 05/06/2020. FINDINGS: Transabdominal scanning: Limited scanning through the kidneys shows no hydronephrosis. There is a m ild amount of free pelvic fluid seen, which is considered to be within physiologic limits. Endovaginal scanning: Uterus: Uterus is normal in size at 8.3 x 3.6 x 5.2 cm. The endometrium measures 7 mm in combined t hickness. An IUD is seen at the expected location. Ovaries: The right ovary measures 3.8 x 2.5 x 3 cm and demonstrates a dominant follicle that measure s 18 mm. Multiple follicles can be seen involving the right ovary. The left ovary measures 3 x 2.3 x 1.9 cm and demonstrates less than 12 follicles. No adnexal masses are seen. IMPRESSION: There is a 1.8 cm cystic follicle seen involving the right ovary, which is considered to be within ph ysiologic limits. An IUD is seen at the expected location. More than 12 follicles are seen involving the right ovary, which can be seen in patients with polycys tic ovarian syndrome. Note: Concordant preliminary findings given by the executive marketing assistant upon the completion of the examination to Dr. Galvan at 10:35 AM on 05/06/2020. Reviewed by: Nnamdi Ramirez MD on 05/06/2020 9:48 AM SKIP Approved by: Nnamdi Ramirez MD on 05/06/2020 9:48 AM SKIP Station ID: [id number]
== END 2020-05-06 10:52 | disposition home or self-care (01) ==
LOC: ED 08:12
DX: N94.0 Mittelschmerz (principal); N83.01 Follicular cyst of right ovary; Z97.5 Presence of (intrauterine) contraceptive device
CPT/HCPCS: 36415; 74176; 76830; 76856; 80053; 81001; 81003; 81025; 83690; 85025; 87086; 93976; 99284

== ENCOUNTER 2020-09-02 13:39 | Emergency (ER) | payer OTHER ==
[2020-09-02 14:13] LABS: BASOPHILS % (AUTO) 0.2 %; EOSINOPHILS % (AUTO) 0.3 %; HGB - HEMOGLOBIN 14.3 g/dL (12.0-16.0); LYMPHOCYTES # (AUTO) 2.7 10^3/uL (1.5-3.5); LYMPHOCYTES % (AUTO) 25.8 %; MEAN CORPUSCULAR HEMOGLOBIN 31.1 pg (27.0-31.0); MEAN CORPUSCULAR HGB CONC 33.1 g/dL (32.0-36.0); MEAN CORPUSCULAR VOLUME 93.9 fL (81.0-99.0); MEAN PLATELET VOLUME 10.1 fL (7.9-10.8); MONOCYTES # (AUTO) 0.7 10^3/uL (0.0-1.0); MONOCYTES % (AUTO) 6.4 %; NEUTROPHILS % (AUTO) 66.9 %; PLT - PLATELET COUNT 310 10^3/uL (130-450); RED CELL DISTRIBUTION WIDTH 11.9 % (12.0-15.0); WHITE BLOOD COUNT 10.5 x10^3/uL (4.8-10.8)
--- NOTE | 2020-09-02 14:16 | ED Physician Documentation ---
PD HPI ABD PAIN - Stated complaint Stated Complaint: FEVER/R SIDE PX SENT BY - Chief complaint Chief Complaint: Abd Pain - History obtained from History obtained from: Patient - History of Present Illness Timing - onset: How many days ago (few) Timing - duration: Days (few) Timing - details: Gradual onset, Still present, Waxing and waning Quality: Cramping, Aching, Pain Location: RUQ, Epigastric Radiation: Upper back (right side) Improved by: Laying still (to left side). No: Eating, Vomiting Worsened by: Eating, Palpation. No: Breathing Associated symptoms: Nausea, Vomiting. No: Fever, Diarrhea, Constipation, Dysuria Similar symptoms before: Has not had sx before Recently seen: Clinic (seen yesterday with labs and was to get U/S but pain worse.) Review of Systems Constitutional: denies: Fever, Chills Nose: denies: Rhinorrhea / runny nose, Congestion Throat: denies: Sore throat Respiratory: denies: Cough GI: reports: Abdominal Pain, Nausea, Vomiting. 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 HEENT: None Psych: Depression, Anxiety, Panic attacks, ADD/ADHD Musculoskeletal: Fibromyalgia, Chronic back pain Derm: None - Past Surgical History Past Surgical History: No - Present Medications Home Medications: Ambulatory Orders Medication Instructions Recorded Confirmed Albuterol 2.5 mg INH Q4H PRN 05/01/18 10/28/19 Acetaminophen [Tylenol] 650 mg PO Q8H tablet 10/31/19 Albuterol 2.5 mg INH RTQ4H PRN neb 10/31/19 Ibuprofen [Motrin] 600 mg PO Q6HR tablet 10/31/19 Oxycodone HCl/Acetaminophen 1 each PO Q4HR PRN #20 tablet 10/31/19 [Percocet 2.5-325 mg Tablet] Pnv No.100/Iron/Folic/Dha/Epa 1 tab PO DAILY 10/31/19 10/31/19 [Theranatal One Softgel] HYDROcod/ACETAM 5/325 [[place] 5/325] 1 ea PO Q6H PRN #18 tab 09/02/20 Lidocaine Viscous 2% [Xylocaine 5 ml PO Q4H PRN #100 ml 09/02/20 Viscous 2%] Omeprazole 40 mg PO DAILY 30 Days #30 cap 09/02/20 Ondansetron Odt [Zofran] 4 mg TL Q6H PRN #10 tab 09/02/20 Sucralfate [Carafate] 1 gm PO ACHS #20 tab 09/02/20 - Allergies Allergies/Adverse Reactions: Allergies Allergy/AdvReac Type Severity Reaction Status Date / Time Penicillins Allergy Intermediate Hives Verified 09/02/20 13:51 - Social History Does the pt smoke?: No Smoking Status: Never smoker Does the pt drink ETOH?: No Does the pt have substance abuse?: No - Family History Family history: reports: Other (several female family members with GB removal at young age. Pt with descent. ) - Immunizations Immunizations are current?: Yes - POLST Patient has POLST: No PD ED PE NORMAL - Vitals Vital signs reviewed: Yes - General General: Alert and oriented X 3, Well developed/nourished, Other (appears in pain) - HEENT HEENT: PERRL (no jaundice), Pharynx benign - Neck Neck: Supple, no meningeal sign, No adenopathy - Cardiac Cardiac: RRR, No murmur - Respiratory Respiratory: Clear bilaterally - Abdomen Abdomen: Normal bowel sounds, Soft, Non distended, No organomegaly, Other (very tender with guarding RUQ and epigastric area. No percussion nor rebound tenderness. Lower abd not tender. No CVA tednderness. ) - Back Back: No CVA TTP - Derm Derm: Normal color, Warm and dry, No rash - Extremities Extremities: No tenderness to palpate, Normal ROM s pain - Neuro Neuro: Alert and oriented X 3, No motor deficit, Normal speech Results - Vitals Vitals: Vital Signs - 24 hr 09/02/20 09/02/20 09/02/20 13:42 15:50 17:06 Temperature 37.6 C 36.9 C Heart Rate 88 83 70 Respiratory 18 20 18 Rate Blood Pressure 123/85 H 117/82 H 118/74 O2 Saturation 100 100 95 09/02/20 09/02/20 17:30 18:07 Temperature 36.6 C Heart Rate 88 70 Respiratory 16 16 Rate Blood Pressure 103/69 116/60 O2 Saturation 97 98 Oxygen O2 Source Room air - Labs Labs: Laboratory Tests 09/02/20 09/02/20 09/02/20 14:00 14:08 14:08 WBC 10.5 RBC 4.60 Hgb 14.3 Hct 43.2 MCV 93.9 MCH 31.1 H MCHC 33.1 RDW 11.9 L Plt Count 310 MPV 10.1 Neut # (Auto) 7.0 H Lymph # (Auto) 2.7 [place] # (Auto) 0.7 Eos # (Auto) 0.0 Baso # (Auto) 0.0 Absolute Nucleated RBC 0.00 Nucleated RBC % 0.0 Sodium 141 Potassium 3.6 Chloride 104 Carbon Dioxide 23 Anion Gap 14.0 H BUN 9 Creatinine 0.8 Estimated GFR (MDRD) 91 Glucose 103 H Calcium 10.2 Total Bilirubin 0.5 AST 19 ALT 13 Alkaline Phosphatase 64 Total Protein 8.1 Albumin 4.9 Globulin 3.2 Albumin/Globulin Ratio 1.5 Lipase 19 L Urine Color YELLOW Urine Clarity CLEAR Urine pH 7.5 Ur Specific [place] 1.015 Urine Protein NEGATIVE Urine Glucose (UA) NEGATIVE Urine Ketones NEGATIVE Urine Occult Blood NEGATIVE Urine Nitrite NEGATIVE Urine Bilirubin NEGATIVE Urine Urobilinogen 0.2 (NORMAL) Ur Leukocyte Esterase NEGATIVE Ur Microscopic Review NOT INDICATED Urine Culture Comments NOT INDICATED Urine HCG, Qual NEGATIVE - Rads (name of study) abd U/S Radiology: Prelim report reviewed (normal gallbladder and CBD. Normal kidney size. 3 mm stone in kidney similar to recent CT. ), See rad report PD MEDICAL DECISION MAKING - ED course Complexity details: re-evaluated patient (pain improved with meds. Nausea improved took few doses meds. ), considered differential (seems c/w gallbladder so will get labs/US. Consider gastritis instead as worse with eating. ), d/w patient Departure - Departure Disposition: 01 Home, Self Care Clinical Impression: RUQ abdominal pain Gastritis, acute Qualifiers: Gastritis type: unspecified gastritis Gastritis bleeding: without bleeding Qualified Code(s): K29.00 - Acute gastritis without bleeding Condition: Stable Record reviewed to determine appropriate education?: Yes Instructions: ED PUD Vs Gastritis Follow-Up: [facility]Provider Group[facility]Provider [facility]] Prescriptions: Sucralfate [Carafate] 1 gm PO ACHS #20 tab HYDROcod/ACETAM 5/325 [[place] 5/325] 1 ea PO Q6H PRN #18 tab PRN Reason: Pain Omeprazole 40 mg PO DAILY 30 Days #30 cap Lidocaine Viscous 2% [Xylocaine Viscous 2%] 5 ml PO Q4H PRN #100 ml PRN Reason: Pain Ondansetron Odt [Zofran] 4 mg TL Q6H PRN #10 tab PRN Reason: Nausea / Vomiting Comments: Your ultrasound of the gallbladder appears normal and your blood tests of the pancreas and liver are normal as well. This would leave the main diagnosis is gastritis versus ulcer (irritation of the stomach lining). Take omeprazole acid reducing medicine daily for a month. Use the sacral fate 4 times a day for the first 5 days to add extra codeine of the stomach to reduce symptoms. To that add antacids such as Maalox or Mylanta and you can combine that with some lidocaine to help with pain if needed. Add ondansetron if needed for nausea and Tylenol for pain and hydrocodone for worse pain. Do not use any anti-inflammatories as this could further irritate your stomach. Avoid coffee alcohol and spicy food for the next couple weeks as well. Follow-up with your primary care, call for an appointment for follow-up later this week. Return if worsening. If this is not improving well over the short- term, further diagnosis could possibly include an endoscopy which would typically be done by surgery/GI outpatient. Discharge Date/Time: 09/02/20 18:12
[2020-09-02 14:17] LABS: BILIRUBIN,URINE NEGATIVE (NEGATIVE); CLARITY,URINE CLEAR (CLEAR); GLUCOSE, URINE (UA) NEGATIVE (NEGATIVE); HCG UR QUAL NEGATIVE; KETONES,URINE (UA) NEGATIVE (NEGATIVE); LEUKOCYTE ESTERASE, URINE NEGATIVE (NEGATIVE); NITRITE,URINE NEGATIVE (NEGATIVE); OCCULT BLOOD,URINE NEGATIVE (NEGATIVE); PH,URINE 7.5 PH (5.0-7.5); PROTEIN,URINE NEGATIVE (NEGATIVE); UROBILINOGEN,URINE 0.2 (NORMAL) E.U./dL (NORMAL)
[2020-09-02 14:26] LABS: ALBUMIN 4.9 g/dL (3.2-5.5); ALBUMIN/GLOBULIN RATIO 1.5 (1.0-2.2); BILIRUBIN,TOTAL 0.5 mg/dL (0.2-1.0); CALCIUM 10.2 mg/dL (8.5-10.3); CREATININE 0.8 mg/dL (0.4-1.0); TOTAL PROTEIN 8.1 g/dL (6.7-8.2)
[2020-09-02] MEDS ORDERED: FAMOTIDINE 20 MG/2 ML VIAL IVP STA (14:49)
[2020-09-02] MEDS ORDERED: HYDROmorphone 1 MG/ML CARPUJECT IVP STA ×2 (14:49→16:14)
[2020-09-02] MEDS ORDERED: ONDANSETRON 4 MG/2 ML VIAL IVP STA ×2 (14:49→16:14)
[2020-09-02] MEDS ORDERED: SODIUM CHLORIDE 0.9% 1,000 ML IV STA (14:49)
[2020-09-02] MEDS ORDERED: KETOROLAC 15 MG/ML VIAL IVP STA (14:49)
--- NOTE | 2020-09-02 15:43 | Ultrasound Report ---
PROCEDURE: Abdomen Limited INDICATIONS: RUQ pain with eating for 2 wks; FH GB disease TECHNIQUE: Real-time scanning was performed of the abdominal and retroperitoneal organs, with image documentatio n. COMPARISON: None. FINDINGS: Liver: Liver is normal in size and homogeneous in echotexture. Scattered punctate calcifications ar e noted. Gallbladder: No visualized stones. Wall thickness is within normal limits measuring 0.9 mm. No perich olecystic fluid. Biliary ducts: Intrahepatic bile ducts are non-dilated. Extrahepatic bile duct caliber measures 3 m m. Normal is 6-7 mm or less in diameter, or 10 mm or less post-cholecystectomy. Pancreas: Visualized portions of the pancreas are sonographically normal. Kidneys: Kidneys are normal in size and echotexture. Right kidney measures 10.2 cm long. No hydron ephrosis . 3 mm nonobstructing right renal calcification is noted. No solid masses. Aorta: Visualized aorta is normal in caliber at less than 3 cm. IVC: Intrahepatic inferior vena cava is patent. Miscellaneous: No free abdominal fluid. IMPRESSION: Gallbladder is unremarkable. Nonobstructing right renal calculus. Reviewed by: Loretta Garcia MD on 09/02/2020 2:42 PM [place] Approved by: Loretta Garcia MD on 09/02/2020 2:42 PM [place] Station ID: [id number]
[2020-09-02] MEDS ORDERED: MAG HYDROX/AL HYDROX/SIMETH 30 ML UDC PO STA (16:14)
[2020-09-02] MEDS ORDERED: LIDOCAINE VISCOUS 2% 15 ML UDC MM STA (16:14)
[2020-09-02] MEDS ORDERED: PROMETHAZINE INJ 12.5 MG in SODIUM CHLORIDE 0.9% 50 ML IV STA (17:10)
[2020-09-02 18:07] VITALS: BP 116/60
== END 2020-09-02 18:12 | disposition home or self-care (01) ==
LOC: ED 13:39
DX: K29.00 Acute gastritis without bleeding (principal); R10.11 Right upper quadrant pain
CPT/HCPCS: 36415; 76705; 80053; 81003; 81025; 83690; 85025; 96361; 96365; 96375; 96376; 99284; 99285; A9270; J1170; J7040; 81001; 87086

== ENCOUNTER 2020-11-19 16:52 | Outpatient (CLI) | payer OTHER | END 2020-11-19 16:53 | disposition critical access hospital (66) | LOC: EMS 16:52 | DX: R06.02 Shortness of breath (principal) | CPT/HCPCS: A0425; A0427 ==

== ENCOUNTER 2020-11-19 17:21 | Emergency (ER) | payer OTHER ==
[2020-11-19] MEDS ORDERED: LEVALBUTEROL 1.25 MG/3 ML NEB INH STA (17:36)
--- NOTE | 2020-11-19 17:38 | ED Physician Documentation ---
PD HPI DYSPNEA - Stated complaint Stated Complaint: ASTHMA - History obtained from History obtained from: Patient, EMS - Additional information Additional information: 20-year-old woman with a history of asthma presents with apparent exacerbation of same. She still is she is had 2 hours of shortness of breath. History is limited because of respiratory distress, but see Physical and medical decision making for details. States she has never been hospitalized for asthma. Received 2 breathing treatments in route as well as 125 mg of IV Solu-Medrol. 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 : None HEENT: None Psych: Depression, Anxiety, Panic attacks, ADD/ADHD Musculoskeletal: Fibromyalgia, Chronic back pain Derm: None - Past Surgical History Past Surgical History: No - Present Medications Home Medications: Ambulatory Orders Medication Instructions Recorded Confirmed Albuterol Sulfate [Proair Hfa 1 - 2 puffs IH Q4HR PRN 11/19/20 11/19/20 Inhaler] predniSONE [Deltasone] 20 mg PO [id number] #21 tab 11/19/20 - Allergies Allergies/Adverse Reactions: Allergies Allergy/AdvReac Type Severity Reaction Status Date / Time Penicillins Allergy Intermediate Hives Verified 11/19/20 17:29 - Social History Does the pt smoke?: No Smoking Status: Never smoker Does the pt drink ETOH?: No Does the pt have substance abuse?: No - Immunizations Immunizations are current?: Yes - POLST Patient has POLST: No PD ED PE NORMAL - Vitals Vital signs reviewed: Yes (Tachycardic with normal pulse ox) - General General: Alert and oriented X 3, Other (She seems to have respiratory stridor that is volitional.) - HEENT HEENT: PERRL, EOMI - Neck Neck: Supple, no meningeal sign, No bony TTP - Cardiac Cardiac: Other (Tachycardic but regular, no murmur) - Respiratory Respiratory: Other (Slight tachypnea with grossly clear lungs, a lot of transmitted upper airway noise which again seems volitional) - Abdomen Abdomen: Soft, Non tender - Back Back: No CVA TTP, No spinal TTP - Derm Derm: Normal color, Warm and dry - Extremities Extremities: No edema, No calf tenderness / cord - Neuro Neuro: Alert and oriented X 3, Normal speech Results - Vitals Vitals: Vital Signs - 24 hr 11/19/20 11/19/20 11/19/20 17:29 17:40 18:12 Temperature 36.9 C Heart Rate 142 H 138 H 135 H Respiratory 24 22 24 Rate Blood Pressure 148/91 H 125/92 H O2 Saturation 100 99 11/19/20 11/19/20 11/19/20 18:46 19:55 20:00 Temperature Heart Rate 117 H 134 H 140 H Respiratory 22 20 30 H Rate Blood Pressure 113/72 115/60 O2 Saturation 99 100 Oxygen O2 Source Room air - Labs Labs: Laboratory Tests 11/19/20 11/19/20 11/19/20 17:47 17:47 17:47 WBC 12.5 H RBC 4.38 Hgb 13.8 Hct 40.7 MCV 92.9 MCH 31.5 H MCHC 33.9 RDW 12.1 Plt Count 268 MPV 10.3 Neut # (Auto) 10.3 H Lymph # (Auto) 1.5 [place] # (Auto) 0.5 Eos # (Auto) 0.1 Baso # (Auto) 0.0 Absolute Nucleated RBC 0.00 Nucleated RBC % 0.0 VBG pH 7.479 H VBG pCO2 29.6 L VBG pO2 35.9 VBG HCO3 21.5 L VBG Total CO2 22.4 L VBG O2 Saturation 78.2 VBG Base Excess -0.8 Sodium 138 Potassium 2.8 L Chloride 104 Carbon Dioxide 19 L Anion Gap 15.0 H BUN 16 Creatinine 0.9 Estimated GFR (MDRD) 79 L Glucose 163 H Calcium 9.3 Phosphorus 1.1 L PD MEDICAL DECISION MAKING - ED course ED course: 20-year-old woman brought in by ambulance for potential asthma exacerbation, but her lungs are clear, she seems to have stridor on exam, visualized portion of the oropharynx are normal the stridor does seem somewhat volitional i.e. if I am in the next room over where I can hear her very well she does not have stridor but kind of comes up immediately on entering the room. She did not get much relief from beta agonist here, we tried then some Ativan which did not really help much. Then racemic epinephrine with minimal relief. It was followed by IV Haldol. After the Haldol she had no further stridor. She requested discharge. Departure - Departure Disposition: 01 Home, Self Care Clinical Impression: Stridor Condition: Good Record reviewed to determine appropriate education?: Yes Instructions: ED Reactive Airway Disease Prescriptions: predniSONE [Deltasone] 20 mg PO [id number] #21 tab Comments: Follow-up with your physician, next available appointment. Return for new or worsening symptoms.
[2020-11-19 17:53] LABS: BASOPHILS % (AUTO) 0.2 %; EOSINOPHILS # (AUTO) 0.1 10^3/uL (0.0-0.7); EOSINOPHILS % (AUTO) 0.6 %; HCT - HEMATOCRIT 40.7 % (37.0-47.0); HGB - HEMOGLOBIN 13.8 g/dL (12.0-16.0); LYMPHOCYTES # (AUTO) 1.5 10^3/uL (1.5-3.5); LYMPHOCYTES % (AUTO) 12.1 %; MEAN CORPUSCULAR HEMOGLOBIN 31.5 pg (27.0-31.0); MEAN CORPUSCULAR HGB CONC 33.9 g/dL (32.0-36.0); MEAN CORPUSCULAR VOLUME 92.9 fL (81.0-99.0); MEAN PLATELET VOLUME 10.3 fL (7.9-10.8); MONOCYTES # (AUTO) 0.5 10^3/uL (0.0-1.0); MONOCYTES % (AUTO) 4.1 %; NEUTROPHILS # (AUTO) 10.3 10^3/uL (1.5-6.6); NEUTROPHILS % (AUTO) 82.7 %; PLT - PLATELET COUNT 268 10^3/uL (130-450); RED BLOOD COUNT 4.38 10^6/uL (4.20-5.40); RED CELL DISTRIBUTION WIDTH 12.1 % (12.0-15.0); WHITE BLOOD COUNT 12.5 x10^3/uL (4.8-10.8)
[2020-11-19 17:54] LABS: VBG HCO3 21.5 mmol/L (23-28); VBG PCO2 29.6 mmHg (41-51); VBG PH 7.479 (7.31-7.41); VBG PO2 35.9 mmHg (25-47)
[2020-11-19 17:55] LABS: VBG BASE EXCESS -0.8 mmol/L (-2 - +2); VBG OXYGEN SATURATION 78.2 % (60-80); VBG TOTAL CO2 22.4 mmol/L (24-29)
[2020-11-19 18:06] LABS: CALCIUM 9.3 mg/dL (8.5-10.3); CREATININE 0.9 mg/dL (0.4-1.0); PHOSPHORUS 1.1 mg/dL (2.5-4.6); POTASSIUM 2.8 mmol/L (3.5-5.0)
[2020-11-19] MEDS ORDERED: LORazepam 2 MG/ML VIAL IVP STA (18:21)
[2020-11-19] MEDS ORDERED: SODIUM CHLORIDE INHALATION 3 ML NEB INH STA (19:38)
[2020-11-19] MEDS ORDERED: RACEPINEPHRINE 2.25% NEB INH STA (19:38)
[2020-11-19] MEDS ORDERED: HALOPERIDOL 5 MG/ML VIAL IVP ONE (20:22)
[2020-11-19 21:00] VITALS: BP 124/64
== END 2020-11-19 20:55 | disposition home or self-care (01) ==
LOC: EDUNIT# → ED 17:21
DX: R06.1 Stridor (principal)
CPT/HCPCS: 36415; 80048; 82803; 84100; 85025; 94640; 96374; 96375; 99283; J2060

== ENCOUNTER 2020-12-11 21:06 | Emergency (ER) | payer OTHER ==
--- OUTSIDE RECORDS SUMMARY | 2020-12-11 21:08 | EXTERNAL MEDICAL SUMMARY RPT | Continuity of Care Document ---
:2000 Demographics Phone Unavailable Preferred Language Unknown Marital Status Unknown Pentecostalism Affiliation Unknown Race Unknown Ethnic Group Unknown Author Organization [facility] Address [address] [place] [address] Phone Allergies Encounters Medications Problems Results
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
[2020-12-11] MEDS ORDERED: HYDROcod/ACETAM 5/325 MG TABLET PO STA (21:32)
[2020-12-11] MEDS ORDERED: IBUPROFEN 600 MG TABLET PO STA (21:32)
--- OUTSIDE RECORDS SUMMARY | 2020-12-11 21:49 | EXTERNAL MEDICAL SUMMARY RPT | Continuity of Care Document ---
:2000 Demographics Phone Unavailable Preferred Language Unknown Marital Status Unknown Yazdanism Affiliation Unknown Race Unknown Ethnic Group Unknown Author Organization [facility] Address [address] [place] [address] Phone Allergies Encounters Medications Problems Results
[2020-12-11 22:37] VITALS: BP 117/72
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
== END 2020-12-11 22:59 | disposition home or self-care (01) ==
LOC: ED 21:06
DX: S46.911A Strain of unspecified muscle, fascia and tendon at shoulder and upper arm level, right arm, initial encounter (principal); X50.9XXA Other and unspecified overexertion or strenuous movements or postures, initial encounter; Y93.89 Activity, other specified; Y92.009 Unspecified place in unspecified non-institutional (private) residence as the place of occurrence of the external cause
CPT/HCPCS: 73030; 99283; 99284; A9270

== ENCOUNTER 2021-05-19 23:07 | Outpatient (CLI) | payer OTHER | END 2021-05-19 23:08 | disposition critical access hospital (66) | LOC: EMS 23:07 | DX: R10.31 Right lower quadrant pain (principal) | CPT/HCPCS: A0425; A0427 ==

== ENCOUNTER 2021-05-19 23:28 | Emergency (ER) | payer OTHER ==
[2021-05-19] MEDS ORDERED: SODIUM CHLORIDE 0.9% 1,000 ML IV STA (23:34)
[2021-05-19] MEDS ORDERED: DROPERIDOL 5 MG/2 ML VIAL IVP STA (23:34)
[2021-05-19] MEDS ORDERED: diphenhydrAMINE INJ 50 MG/ML VIAL IVP STA (23:34)
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
[2021-05-19 23:56] LABS: BASOPHILS % (AUTO) 0.3 %; EOSINOPHILS # (AUTO) 0.1 10^3/uL (0.0-0.7); EOSINOPHILS % (AUTO) 0.9 %; HGB - HEMOGLOBIN 13.9 g/dL (12.0-16.0); LYMPHOCYTES % (AUTO) 23.3 %; MEAN CORPUSCULAR HGB CONC 33.1 g/dL (32.0-36.0); MEAN CORPUSCULAR VOLUME 93.8 fL (81.0-99.0); MEAN PLATELET VOLUME 10.1 fL (7.9-10.8); MONOCYTES # (AUTO) 0.8 10^3/uL (0.0-1.0); MONOCYTES % (AUTO) 6.3 %; NEUTROPHILS # (AUTO) 8.7 10^3/uL (1.5-6.6); NEUTROPHILS % (AUTO) 68.9 %; PLT - PLATELET COUNT 278 10^3/uL (130-450); RED BLOOD COUNT 4.48 10^6/uL (4.20-5.40); WHITE BLOOD COUNT 12.6 x10^3/uL (4.8-10.8)
[2021-05-20 00:10] LABS: ALBUMIN 4.2 g/dL (3.2-5.5); ALBUMIN/GLOBULIN RATIO 1.5 (1.0-2.2); ALKALINE PHOSPHATASE 55 IU/L (42-121); ALT ALANINE AMINOTRANSFERASE 11 IU/L (10-60); AST ASPARTATE AMINOTRANSFERASE 16 IU/L (10-42); BILIRUBIN,TOTAL 0.7 mg/dL (0.2-1.0); BUN - BLOOD UREA NITROGEN 15 mg/dL (6-20); CALCIUM 8.8 mg/dL (8.5-10.3); CARBON DIOXIDE - CO2 20 mmol/L (21-32); CHLORIDE 103 mmol/L (101-111); CK- CREATINE KINASE 62 IU/L (22-269); CREATININE 0.8 mg/dL (0.4-1.0); ETOH - ETHANOL < 5.0 mg/dL; GFR - MDRD 90 (>89); GLUCOSE 111 mg/dL (70-100); LIPASE 23 U/L (22-51); POTASSIUM 3.2 mmol/L (3.5-5.0); SODIUM 137 mmol/L (135-145)
[2021-05-20] MEDS ORDERED: LORazepam 2 MG/ML VIAL IVP STA (00:16)
[2021-05-20 01:00] LABS: BILIRUBIN,URINE NEGATIVE (NEGATIVE); GLUCOSE, URINE (UA) NEGATIVE (NEGATIVE); KETONES,URINE (UA) TRACE mg/dL (NEGATIVE); LEUKOCYTE ESTERASE, URINE NEGATIVE (NEGATIVE); NITRITE,URINE NEGATIVE (NEGATIVE); OCCULT BLOOD,URINE SMALL (NEGATIVE); PH,URINE 6.5 PH (5.0-7.5); PROTEIN,URINE NEGATIVE (NEGATIVE); UROBILINOGEN,URINE 0.2 (NORMAL) E.U./dL (NORMAL)
[2021-05-20 01:04] LABS: CLARITY,URINE CLEAR (CLEAR); HCG UR QUAL NEGATIVE
[2021-05-20 01:07] LABS: BACTERIA,URINE Rare /HPF (None Seen); RBC,URINE 0-5 /HPF (0-5); SQUAMOUS EPITHELIAL CELL,UR FEW Squamous (<= Few); WBC,URINE 0-3 /HPF (0-5)
--- NOTE | 2021-05-20 01:34 | Ultrasound Report ---
PROCEDURE: Pelvic Complete INDICATIONS: Rt pelvic pain TECHNIQUE: Real-time transabdominal an transvaginal scanning was performed of the pelvic organs, with image docu mentation. COMPARISON: 05/06/2020 pelvic ultrasound FINDINGS: Uterus measures 3.4 x 4.3 x 7.8 cm. IUD appears to be in appropriate position. No uterine mass identi fied. Both ovaries are normal in size. There is a right ovarian cyst measuring approximately 1.8 cm with no features of complexity. Normal arterial and venous Doppler signal was obtained in both ovaries. IMPRESSION: No acute or otherwise salient abnormality. Reviewed by: Yvan Barajas MD on 05/20/2021 1:33 AM PST Approved by: Yvan Barajas MD on 05/20/2021 1:33 AM PST Station ID: [id number]
--- NOTE | 2021-05-20 01:35 | Ultrasound Report ---
PROCEDURE: Transvaginal INDICATIONS: Right-sided pelvic pain OUTSIDE/PRIOR DATING DATA: TECHNIQUE: Transvaginal scanning of the pelvic organs with real-time image documentation. COMPARISON: None. FINDINGS/IMPRESSION: Please see separately dictated pelvic ultrasound report. Reviewed by: Yvan Barajas MD on 05/20/2021 1:34 AM PST Approved by: Yvan Barajas MD on 05/20/2021 1:34 AM PST Station ID: [id number]
[2021-05-20 01:48] VITALS: BP 115/68
== END 2021-05-20 01:47 | disposition home or self-care (01) ==
LOC: EDUNIT# → ED 23:28
DX: R10.31 Right lower quadrant pain (principal); N83.201 Unspecified ovarian cyst, right side; D72.829 Elevated white blood cell count, unspecified; F41.0 Panic disorder [episodic paroxysmal anxiety]
CPT/HCPCS: 36415; 76830; 76856; 80053; 80320; 81001; 81025; 82550; 83605; 83690; 85025; 96374; 96375; 99284; J1200; J2060; 81003; 87086

== ENCOUNTER 2021-06-30 10:18 | Outpatient (CLI) | payer OTHER ==
--- NOTE | 2021-06-30 12:34 | MRI Report ---
PROCEDURE: Wrist RT W/O INDICATIONS: PAIN IN RIGHT WRIST TECHNIQUE: Noncontrast coronal proton density fast spin echo and T2 fast spin echo with fat saturation; coronal 3-D gradient echo, axial T1 spin echo and T2 fast spin echo with fat saturation, sagittal T1 spin ech o through the wrist. COMPARISON: None. FINDINGS: BONES: The carpal bones are normally aligned. No bone marrow contusions or fractures. No evidence for avascular necrosis. CARTILAGE: The cartilage surfaces appear normal. CARPAL LIGAMENTS: The scapholunate and lunotriquetral ligaments appear intact. In the absence of in tra-articular contrast, the extrinsic carpal ligaments are not well identified. On sagittal images, the pisohamate ligament appears intact. TRIANGULAR FIBROCARTILAGE COMPLEX: The triangular fibrocartilage appears intact. The adjacent menis liz homolog appears normal in the absence of intra-articular contrast. The extensor carpi ulnaris te ndon is normal in location and morphology. CARPAL TUNNEL: Normal appearance, including the median nerve. GUYON'S CANAL: The ulnar nerve appears normal. EXTENSOR TENDON COMPARTMENT: Normal morphology, without pathologic tendon sheath fluid. SOFT TISSUES: A 1.1 x 0.9 x 0.4 cm T2 hyperintense lesion is seen with septation underlying the fourt h compartment extensor tendons, which may reflect a ganglion. Small joint effusion in the palmar aspect radiocarpal articulation. IMPRESSION: 1.Cystic lesion underlying the fourth compartment extensor tendons, likely reflecting a ganglion. Reviewed by: Andi Rivas MD on 06/30/2021 12:33 PM PST Approved by: Andi Rivas MD on 06/30/2021 12:33 PM PST Station ID: [id number]
== END 2021-06-30 10:19 | disposition home or self-care (01) ==
LOC: DI 10:18
PROVIDERS: ATTEND Orthopaedic Surgery
DX: M25.831 Other specified joint disorders, right wrist (principal); M25.531 Pain in right wrist

== ENCOUNTER 2021-11-27 08:00 | Outpatient (CLI) | payer OTHER ==
--- NOTE | 2021-11-27 17:43 | XRAY Report ---
PROCEDURE: Wrist 3 View RT INDICATIONS: PAIN IN RIGHT WRIST TECHNIQUE: 3 views of the wrist were acquired. COMPARISON: MRI of wrist dated 06/30/2021 FINDINGS: Bones: No fractures or dislocations. No suspicious bony lesions. Scaphoid view: Scaphoid is grossly intact. Soft tissues: No suspicious soft tissue calcifications. Mild dorsal soft tissue swelling is seen at the level of proximal carpal row. IMPRESSION: No wrist fracture or dislocation. Mild dorsal soft tissue swelling which may be related to patient's known possible ganglion cyst seen on previous MRI study. Reviewed by: Francisco Javier Ya MD on 11/27/2021 5:42 PM PDT Approved by: Francisco Javier Ya MD on 11/27/2021 5:42 PM PDT Station ID: [id number]
== END 2021-11-27 23:59 | disposition home or self-care (01) ==
LOC: DI.N 08:00
PROVIDERS: ATTEND Physician Assistant
DX: M25.531 Pain in right wrist (principal); M79.9 Soft tissue disorder, unspecified